=== PATIENT | male | born 1950 | race Caucasian/White ===

== ENCOUNTER → 2016-06-25 08:32 | Outpatient (CLI) | payer MEDICARE, BC ==
[2015-10-29 10:20] VITALS: BMI 22.2
[~2016-06-25 08:32] MED LIST: ALEVE220 MG PO; BAYER CHEWABLE81 MG PO; GLIPIZIDE10 MG PO; INVOKAMET 150-1 EACH PO; MIRAPEX0.75 MG PO; NICODERM C1 PATCH .3 TRANSDERM; PLAVIX75 MG PO; TENORMIN50 MG PO; TRADJENTA5 MG PO
--- NOTE | 2016-06-25 09:57 | NUR ---
Nutrition education for DMT2: Pt works as a center medical and lab director. Pt is very erratic with meal times. The only meal that pt eats consistently at the same time is breakfast. Pt never drinks sugary drinks-just water and diet sodas. Pt eats nonstarchy vegetables daily at least with one meal. Pt does eat fast food. Ht: 5'10" Wt: 165# IBW: 166#+/-10% BMI: 23.7 Meds: Glipizide 2 pills morning and evening, Actos, Invocanamet Reviewed CHO containing foods and the affect CHO have on glucose. Reviewed portion sizes of common CHO foods. Advised pt to eat meals and snacks at consistent times along with the same amount of CHO every day to keep glucose under control; especially while taking Glipizide. Advised pt to start packing meals and snacks to try and eat healthier than fast food. Pt with good understanding of information provided. Provided pt with printed diet information and RDN name and phone number. RDN will be avialable if needed. Thank you for the consult.
== END | disposition home or self-care (01) ==
LOC: D.FANS 08:32
DX: E11.9 Type 2 diabetes mellitus without complications (principal)

== ENCOUNTER 2016-08-12 07:28 | Outpatient (CLI) | payer MEDICARE, BC ==
[~2016-08-12] VITALS: Ht 177.8 cm; Wt 72.7 kg
--- NOTE | ~2016-08-12 | HEMODYNAMI ---
PATIENT:SHANNON TOMPKINS MEDICAL RECORD: [id number] : 50 LOCATION:D.CAT ADMISSION DATE: 08/12/16 Generatedon:08/12/201610:25 Patient name: SHANNON TOMPKINS Patient #: [id number] SSN: : 1950 Date of study: 08/12/2016 Page: Of Hemodynamic Procedure Report Patient Data Patient Demographics Procedure consent was obtained First Name: SHANNON Gender: Male Last Name: LEDA : 1950 Middle Initial: L Age: 66 year(s) Patient #: [id number] Race: Additional ID: [id number] Contact details [address]: [address] [place] [address] State: [place] City: [place] Zip code: [address] Past Medical History Allergies: No known allergies Admission Admission Data Admission Date: 08/12/2016 Admission Time: 7:28 Lab Results Lab Result Date: 08/12/2016 Lab Result Time: 0:00 Biochemistry Name Units Result Min Max Creatinine mg/dl 1.1 --(--*-)-- 0.6 1.3 CBC Name Units Result Min Max Hemoglobin g/dl 14.1 --(*---)-- 13.5 17.5 Procedure Procedure Types Cath Procedure Miscellaneous Procedures Moderate Sedation up to 45 minutes Peripheral Cath Diagnostic Procedure Cath Peripheral Gdwfl-Bbogyhp-Nhk-Off Peripheral vascular Intervention Stent Stent-Fem/Popw/plasty Procedure Description Procedure Date Procedure Date: 08/12/2016 Procedure Start Time: 10:03 Procedure End Time: 10:25 Procedure Staff Name Function Francois Cisse MD Performing Physician Thom Harris RT Scrub Cata Elmore RN Nurse Gay Vásquez RT Monitor Procedure Data Cath Procedure Fluoroscopy Diagnostic fluoroscopy Total fluoroscopy Time: 3.7 time: 3.7 min min Diagnostic fluoroscopy Total fluoroscopy dose: 100 dose: 100 mGy mGy Contrast Material Contrast Material Type Amount (ml) Isovue 300 118 Entry Location Entry Primary Successful Side Size Upsize Upsize Entry Closure Rai ccessful Closure Location (Fr) 1 (Fr) 2 (Fr) Remarks Device Remarks Femoral Left 5 Fr 6 Fr 6 Fr Mechanical artery Long Short Compression Estimated blood loss: 10 ml Diagnostic catheters Device Type Used For End Catheter Placement Cordis Tempo 5Fr UF Abdominal catheter aortogram with runoff Procedure Complications No complications Procedure Medications Medication Administration Route Dosage Oxygen NC 2 l/min Heparin Flush Bag added to field 2 bags (1000units/500ml NS) Lidocaine 2% added to field 20 Fentanyl I.V. 50 mcg Versed I.V. 1 mg Heparin Bolus I.V. 4000 units Fentanyl I.V. 25 mcg Versed I.V. 0.5 mg Fentanyl I.V. 25 mcg Versed I.V. 0.5 mg Hemodynamics Rest HGB: 14.1 (g/dl) Heart Rate: 73 (bpm) Snapshots Pre Cath Intra NCS Post Cath Vital Signs Time Heart Resp SPO2 etCO2 [id number] NIBP (mmHg) Rhythm Pain Sedation Rate (ipm) (%) (mmHg) (mmHg) Status Level (bpm) 9:33:56 75 16 100 0 0 157/70(118) NSR 0 (11) 10(A) , No pain 9:38:17 70 19 100 0 0 152/71(113) NSR 0 (11) 10(A) , No pain 9:42:39 72 18 100 0 0 141/64(102) NSR 0 (11) 10(A) , No pain 9:46:57 71 20 99 0 0 142/62(105) NSR 0 (11) 9(A) , No pain 9:51:17 71 16 99 0 0 136/60(102) NSR 0 (11) 9(A) , No pain 9:55:33 71 18 99 0 0 136/65(100) NSR 0 (11) 9(A) , No pain 9:59:51 71 16 99 0 0 127/57(95) NSR 0 (11) 9(A) , No pain 10:04:50 72 17 100 0 0 Measuring NSR 0 (11) 9(A) , No pain 10:05:02 71 17 100 0 0 137/66(100) NSR 0 (11) 9(A) , No pain 10:09:18 73 20 99 0 0 152/65(102) NSR 0 (11) 9(A) , No pain 10:13:41 71 18 99 0 0 143/61(99) NSR 0 (11) 9(A) , No pain 10:18:01 71 20 99 0 0 137/60(102) NSR 0 (11) 9(A) , No pain 10:22:17 75 7 99 0 0 145/62(102) NSR 0 (11) 9(A) , No pain Medications Time Medication Route Dose Verified Delivered Reason Notes Effectiveness by by 9:32:00 Oxygen NC 2 Cata Cata used for l/min Elmore Elmore show host or hostess RN 9:32:08 Heparin Flush added 2 Cata Cata used for Bag to bags Elmore Elmore procedure (1000units/500ml field RN RN NS) 9:32:16 Lidocaine 2% added 20ml Cata Cata used for to vial Elmore Elmore procedure field RN RN 9:42:53 Fentanyl I.V. 50 Cata Cata for sedation mcg Elmore Elmore RN RN 9:42:59 Versed I.V. 1 mg Cata Cata for sedation Elmore Elmore RN RN 10:09:05 Heparin Bolus I.V. 4000 Cata Cata for units Elmore Elmore anticoagulation RN RN 10:11:17 Fentanyl I.V. 25 Cata Cata for sedation mcg Elmore Elmore RN RN 10:11:21 Versed I.V. 0.5 Cata Cata for sedation mg Elmore Elmore RN RN 10:12:48 Fentanyl I.V. 25 Cata Cata for sedation mcg Elmore Elmore RN RN 10:12:51 Versed I.V. 0.5 Cata Cata for sedation mg Elmore Elmore RN water commissioner Log Time Note 9:19:30 Thom Harris RT(R) sent for patient. Start room use. 9:19:31 Time tracking: Regular hours 9:19:36 Plan of Care:Hemodynamics will remain stable., Cardiac rhythm will remain stable., Comfort level will be maintained., Respiratory function will remain adequate., Patient/ family verbilizes understanding of procedure., Procedure tolerated without complication., Recovers from procedure without complications.. 9:25:23 Patient received from Pre/Post Procedure Room to [facility] 1 Alert and oriented. Tansferred to table in Supine position. 9:25:24 Warm blankets applied, and kaia hugger turned on for patient comfort. 9:25:24 Correct patient and procedure confirmed by team. 9:25:26 Signed procedure consent form obtained from patient. 9:25:26 ECG and BP/O2 sat monitors applied to patient. 9:25:27 Full Disclosure recording started 9:32:00 Oxygen 2 l/min NC was administered by Cata Elmore RN; used for procedure; 9:32:08 Heparin Flush Bag (1000units/500ml NS) 2 bags added to field was administered by Cata Elmore RN; used for procedure; 9:32:16 Lidocaine 2% 20ml vial added to field was administered by Cata Elmore RN; used for procedure; 9:32:41 Vital chart was started 9:35:45 Baseline sample Acquired. 9:35:59 Rhythm: sinus rhythm 9:36:05 H&P Date Dictated: 08/12/2016 New H&P dictated by physician.. 9:36:07 Pre-procedure instructions explained to patient. 9:36:07 Pre-op teaching completed and patient verbalized understanding. 9:36:08 Family in waiting room. 9:36:11 Patient NPO since Midnight. 9:36:17 Patient allergic to No known allergies 9:36:20 Is the patient allergic to Iodine/contrast media? No. 9:36:22 Is patient on blood thinner?Yes 9:36:24 ACC The patient was administered the following blood thiners within the last 24 hours: ACCAspirin, ACCPlavix 9:36:26 Patient diabetic? Yes. 9:36:28 If diabetic: On Metformin? Yes 9:36:30 If on Metformin: Last Dose? 08/10/2016 9:36:34 Previous problem with sedation/anesthesia? No ? 9:36:35 Snore? Yes 9:36:36 Sleep apnea? No 9:36:37 Deviated septum? No 9:36:38 Opens mouth fully? Yes 9:36:39 Sticks out tongue? Yes 9:36:41 Airway obstruction? No ? 9:36:45 Dentures? Yes In 9:36:48 Pre procedure: right dorsailis pedis pulse 1+ Palpable, but thready & weak; easily obliterated 9:36:51 Pre procedure: left dorsailis pedis pulse 1+ Palpable, but thready & weak; easily obliterated 9:36:53 Patient pain scale 0/10 ?. 9:36:58 IV patent on arrival in left hand with 0.9% NaCl at O. 9:37:21 Lab Result : Creatinine 1.1 mg/dl 9:37:21 Lab Result : Hemoglobin 14.1 g/dl 9:37:24 Lab results completed and on chart. 9:37:28 Bilateral groins area was prepped with chlora-prep and draped in sterile fashion 9:37:29 Alarms reviewed by R. N. 9:37:29 Sharps counted by scrub and verified by R.N. 9:37:32 Acist Syringe opened to sterile field. 9:37:33 Bag Decanter opened to sterile field. 9:37:33 Medline Cath Pack opened to sterile field. 9:37:34 Terumo 5Fr [place] Sheath opened to sterile field. 9:37:35 Acist Hand Control opened to sterile field. 9:37:35 Acist Manifold opened to sterile field. 9:37:39 Tegaderm 4 x 4 opened to sterile field. 9:37:41 St Get 260cm J .035 wire opened to sterile field. 9:42:25 Final Timeout: patient, procedure, and site verified with staff and physician. All members of the team are in agreement. 9:42:29 Left groin site verified by team. 9:42:32 Physical assessment completed. ASA score P 2 - A patient with mild systemic disease as per Francois Cisse MD. 9:42:36 Sedation plan: IV Moderate Sedation Versed, Fentanyl 9:42:53 Fentanyl 50 mcg I.V. was administered by Cata Elmore RN; for sedation; 9:42:59 Versed 1 mg I.V. was administered by Cata Elmore RN; for sedation; 9:45:47 Zero performed for pressure channel P1 9:45:51 Zero performed for pressure channel P1 10:03:33 Procedure started. 10:03:38 Local anesthetic to left femerol artery with Lidocaine 2% by Francois Cisse MD.INITIAL ACCESS ONLY 10:04:32 A 5 Fr sheath was inserted into the Left Femoral artery 10:04:58 A LilyMedia 5Fr UF catheter was advanced over the wire and used for Abdominal aortogram with runoff. 10:07:01 Terumo 6Fr [place] Destination Sheath opened to sterile field. 10:07:02 Terumo Super Stiff Angled 260cm glide wire opened to sterile field. 10:07:03 Merit BasixCompak Inflation Kit opened to sterile field. 10:07:08 Terumo 6Fr [place] Sheath opened to sterile field. 10:08:07 Terumo TORQUE DEVICE PLASTIC .038 opened to sterile field. 10:08:13 SS [place] wire advanced. 10:08:26 Sheath upsized to a 6 Fr Long. 10:09:01 Glidewire advanced down RSFA 10:09:05 Heparin Bolus 4000 units I.V. was administered by Cata Elmore RN; for anticoagulation; 10:10:15 Wire removed. 10:10:26 Sandstone Sci Choice PT Extra Support J 300cm .014 gu opened to sterile field. 10:10:42 Choice PT ES wire advanced. 10:11:17 Fentanyl 25 mcg I.V. was administered by Cata Elmore RN; for sedation; 10:11:21 Versed 0.5 mg I.V. was administered by Catasushil Elmore RN; for sedation; 10:12:48 Fentanyl 25 mcg I.V. was administered by Catasushil Elmore RN; for sedation; 10:12:51 Versed 0.5 mg I.V. was administered by Catasushil Elmore RN; for sedation; 10:12:59 Inflation number: 1 A Cordis Powerflex Pro 6.0 X 20 X 135 balloon was prepped and advanced across the Mid Superficial Femoral, Right, then inflated to 3 GIULIANA for 0:10 (min:sec). 10:13:21 Balloon removed over the wire. 10:15:12 Cordis SMART 6 X 40 X 120 stent was deployed across Mid Superficial Femoral, Right . 10:15:30 Stent catheter was removed intact over wire. 10:15:31 Wire removed. 10:15:39 Sheath upsized to a 6 Fr Short. 10:15:58 Cordis 6Fr Exoseal opened to sterile field. 10:16:01 Procedure ended.(Physican Out) 10:17:57 Fluoroscopy time 03.70 minutes. 10:18:02 Fluoroscopy dose: 100 mGy 10:18:02 Flurop Dose total: 100 10:18:06 Contrast amount:Isovue 300 118ml. 10:18:08 Sharps counted by scrub and verified by R.N. 10:18:10 Insertion/operative site no bleeding no hematoma. 10:18:16 Post-op/insertion site Left Femoral artery dressed using a 4 x 4 and Tegaderm. 10:18:20 Post left femerol artery:stable, clean and dry 10:18:22 Post Procedure Pulses reassessed and unchanged 10:18:27 Post-procedure physical assessment completed. ASA score P 2 - A patient with mild systemic disease as per Francois Cisse MD. 10:18:29 Post procedure rhythm: unchanged. 10:18:32 Estimated blood loss: 10 ml 10:18:33 Post procedure instruction explained to patient.Patient verbalizes understanding. 10:18:34 Patient needs reinforcement of post procedure teaching. 10:19:03 Procedure type changed to Cath procedure, Miscellaneous Procedures, Moderate Sedation up to 45 minutes, Peripheral Cath Diagnostic Procedure, Cath Peripheral, Rybwd-Skqiqui-Ajj-Off, Peripheral vascular Intervention, Stent, Stent-Fem/Popw/plasty 10:20:15 Procedure and supply charges have been captured, reviewed, submitted and are correct. 10:20:20 Procedure Complication : No complications 10:20:22 See physician's report for complete and final results. 10:23:20 Sheath removed intact; hemostasis achieved with Mechanical Compression to the Left Femoral artery. 10:23:41 St Get Femstop Arch Gold opened to sterile field. 10:24:59 Vital chart was stopped 10:25:03 Report given to Pre/Post Procedure Room. 10:25:06 Patient transfered to Pre/Post Procedure Room with Stretcher. 10:25:13 Procedure ended. 10:25:13 Full Disclosure recording stopped 10:25:16 End room use (Document Last) Intervention Summary Intervention Notes Time ActionType Lesion and Equipment Action# Pressure Duration Attributes Used 10:12:59 Inflate Mid Cordis 1 3 00:10 balloon Superficial Powerflex Femoral, Pro 6.0 X Right 20 X 135 balloon 10:15:12 Deploy self Mid Cordis 1 expanding Superficial SMART 6 X stent Femoral, 40 X 120 Right stent Device Usage Item Name Manufacture Quantity Catalog Number Hospital Part Current Minim al Lot# / Charge Number Stock Stock Serial# Code Acist Acist 1 [id number] [id number] 686969 [id number] 20 Syringe Medical Systems Inc Bag Microtek 1 2002S 809260 13117 899984 5 Decanter Medical Inc. Medline Cardinal 1 [id number] 956159 64035 543717 5 Cath Pack Health Terumo 5Fr Terumo 1 [id number] 065518 626603 219668 40 [place] Sheath Acist Hand Acist 1 57471 073495 186425 930408 5 Control Medical Systems Inc Acist Acist 1 59005 635676 398481 914570 5 Manifold Medical Systems Inc Tegaderm 4 3M 1 1626W 731955 334644 579[address] Get 1 520515 286134 110408 492469 30 260cm J .035 wire Cordis Cardinal 1 [id number] 071359 446840 584255 10 Tempo 5Fr Health UF catheter Terumo 6Fr Terumo 1 RSR01 735555 60601 434240 5 [place] Destination Sheath Terumo Terumo 1 [id number] 478731 303924 661487 5 Super Stiff Angled 260cm glide wire Merit Merit 1 [id number] 600803 573936 462989 15 BasixHealthboxpaStars Express Medical Inflation Kit Terumo 6Fr Terumo 1 [id number] 768307 971425 197670 40 [place] Sheath Terumo Sandstone 1 TD01 241790 597459 791773 5 TORQUE Scientific DEVICE PLASTIC .038 Sandstone Sci Sandstone 1 [id number] 400481 006857 495606 5 Choice PT Scientific Extra Support J 300cm .014 gu Cordis Cardinal 1 [id number] 140396 932133 871428 5 Powerflex Health Pro 6.0 X 20 X 135 balloon Cordis Cardinal 1 [id number] 039511 649460 0 [id number] SMART 6 X Health 40 X 120 stent Cordis 6Fr Cardinal 1 EX600 907310 415877 035824 [id number] Get St Get 1 [id number] 700467 272876 066839 5 Femstop Arch Gold Signature Audit Forsan Stage Time Signature Unsigned Intra-Procedure 08/12/2016 Gay 10:25:27 AM Counts RT(R) Signatures Monitor : Gay Signature : Counts RT Date : Time : [id number] [place] [address]
[2016-08-12] MEDS ORDERED: ACTOS30 MG PO (08:42)
[2016-08-12 08:49] VITALS: BP 154/56; Ht 177.8 cm; Wt 72.7 kg
[2016-08-12 08:51] LABS: EOSINOPHILS 6.5 % (0-7); HEMATOCRIT 42.9 % (42.0-54.0); HEMOGLOBIN 14.1 g/dL (13.5-17.5); LYMPHOCYTES 26.7 % (15-50); MCH 34.7 pg (26.0-34.0); MCHC 32.9 g/dL (31.0-37.0); MCV 105.7 fL (80.0-100.0); MEAN PLATELET VOLUME 9.7 fL (7.4-10.4); MONOCYTES 8.3 % (2-11); NEUTROPHILS 57.5 % (40-80); RBC 4.06 10x6/uL (4.20-6.10); RDW 12.9 % (11.5-14.5); WBC 4.8 10x3/uL (4.8-10.8)
[2016-08-12 08:52] LABS: PLATELET COUNT 211 10x3/uL (130-400)
[2016-08-12 09:02] LABS: CALCIUM 9.4 mg/dL (8.5-10.1); CREATININE - SERUM 1.1 mg/dL (0.6-1.3)
--- NOTE | 2016-08-12 10:55 | NUR ---
2L NC, NO RESP DISTRESS NOTED. LEFT GROIN 6F EXOSEAL CDI, NO BLEEDING OR HEMATOMA NOTED, FEMSTOP IN PLACE AT 115. VSS. NO C/O CHEST PAIN OR NAUSEA. C/O LEFT LEG PAIN. REC'D ORDERS FOR PAIN MEDICATION FROM DR. HILL. SEE APR.
--- NOTE | 2016-08-12 11:25 | NUR ---
2L NC, NO RESP DISTRESS NOTED. LEFT GROIN 6F EXOSEAL CDI, WITH FEMSTOP IN PLACE. NO BLEEDING OR HEMATOMA NOTED. VSS. AT BEDSIDE.
--- NOTE | 2016-08-12 11:40 | NUR ---
FEMSTOP PRESSURE DECREASED BY 20, NO BLEEDING NOTED. 2L NC, NO RESP DISTRESS NOTED. VSS.
--- NOTE | 2016-08-12 11:55 | NUR ---
FEMSTOP PRESSURE DECREASED BY 20, NO BLEEDING NOTED.
--- NOTE | 2016-08-12 12:15 | NUR ---
FEMSTOP PRESSURE DECREASED BY 30, NO BLEEDING NOTED.
--- NOTE | 2016-08-12 12:30 | NUR ---
FEMSTOP PRESSURE DECREASED BY 30, NO BLEEDING NOTED. VSS.
--- NOTE | 2016-08-12 12:55 | NUR ---
REMAINING FEMSTOP PRESSURE REMOVED AND DRESSING PLACED TO SITE. NO BLEEDING OR HEMATOMA NOTED. VSS. NO C/O PAIN OR NAUSEA.
--- NOTE | 2016-08-12 13:58 | NUR ---
HOB ELEVATED 30 DEGREES. LEFT GROIN 6F EXOSEAL CDI, NO BLEEDING OR HEMATOMA NOTED.
--- NOTE | 2016-08-12 14:15 | NUR ---
LEFT HAND PIV D/C'D WITH CATHETER INTACT, BAND AID TO SITE. UP TO BEDSIDE TO GET DRESSED.
--- NOTE | 2016-08-12 14:20 | NUR ---
UP TO RESTROOM TO VOID.
--- NOTE | 2016-08-12 14:28 | NUR ---
DISCHARGE INSTRUCTIONS GIVEN, VERBALIZED UNDERSTANDING.
--- NOTE | 2016-08-12 14:35 | NUR ---
TAKEN OUT VIA WHEELCHAIR BY CATH BILLING SPECIALIST. LEFT FACILITY WITH AND ALL PERSONAL BELONGINGS.
--- NOTE | 2016-08-14 08:49 | HP ---
PATIENT: SHANNON KELLEY MEDICAL RECORD: [id number] ACCOUNT: [id number] LOCATION:JOSEPH : 50 ADMISSION DATE: 08/12/16 HISTORY AND PHYSICAL EXAMINATION DIAGNOSES: 1. Claudication. 2. Peripheral vascular disease. 3. Hypertension. 4. Noninsulin dependent diabetes. 5. Coronary artery disease. HISTORY OF PRESENT ILLNESS: Mr. Kelley has been having increasing leg pain compatible with claudication as well as a nonhealing ulcer on his right toe. He had an KATARZYNA with 0.61 on the right, 0.81 on the left. He is followed by the wound clinic. They requested possible revascularization. PHYSICAL EXAMINATION: GENERAL APPEARANCE: Well-nourished, well-developed, appears stated age. Level of distress, comfortable. PSYCHIATRIC: Mental status, alert, normal affect. Orientation, oriented to time, place and person. EYES: Lids and conjunctiva, noninjected. No discharge, no pallor. ENT: Lips, teeth, gums, normal dentition. Oropharynx, no cyanosis, no pallor. NECK: Carotid arteries, bilateral normal upstroke, no bruits, no thrills. JUGULAR VEINS: No jugular venous pressure or distention. CERVICAL LYMPH NODES: Nontender, nonenlarged. THYROID: Not enlarged. Nontender. No nodules. LUNGS: Respiratory effort, unlabored. CHEST: Normal curvature. No thoracic deformity. No chest wall tenderness. Percussion, resonant. Auscultation, clear. No wheezes, no rales, no rhonchi. CARDIOVASCULAR: Precordial exam, nondisplaced. No heaves or pericardial thrills. Rate and rhythm, regular. Heart sounds, normal S1, normal S2. No S3, no gallop, no rub. Systolic murmur, not heard. Diastolic murmur, not heard. EXTREMITIES: No cyanosis, no edema. Peripheral pulses, full and equal in all extremities, except as noted. No bruits appreciated. ABDOMEN: Soft, nondistended. Normal aorta. No bruit. Nontender. No masses. Liver, nontender, no hepatomegaly. Spleen, nontender, no splenomegaly. MUSCULOSKELETAL: No joint tenderness. No joint swelling. No erythema. NEUROLOGICAL: Normal gait, normal strength, normal tone. SKIN: Warm and dry. REVIEW OF SYSTEMS: The patient reports easy bruising but reports no swollen glands. The patient reports no fever, no night sweats, no significant weight gain, no significant weight loss. No significant exercise tolerance. The patient reports no dry eyes, no irritation, no vision change. Patient reports no difficulty hearing and no ear pain. Patient reports no frequent nose bleeds or nose and sinus problems. Patient reports on arm pain on exertion. No shortness of breath while lying down. No history of heart murmur. Patient reports no cough, no wheezing or coughing up blood. Patient reports no abdominal pain, no vomiting. Normal appetite. No diarrhea and not vomiting blood. No nausea and no constipation. Patient reports no incontinence. No difficulty urinating. No hematuria. No increased frequency. Patient reports no muscle aches. No weakness, no arthralgias, no back pain. No swelling of the extremities. Patient reports no abnormal mole, no jaundice, no rashes. Reports HISTORY AND PHYSICAL [id number] SHANNON KELLEY no loss of consciousness. No weakness and no numbness. No seizures, dizziness, or headaches. The patient reports no depression, no sleep disturbance, feeling safe in a relationship and no alcohol abuse. Patient reports on fatigue. Reports no runny nose or sinus pressure. No itching, no hives, and no frequent sneezing. OVERALL IMPRESSION: No doubt he has hemodynamically significant peripheral vascular disease. We will proceed with the aortofemoral runoff in hopes of transcatheter revascularization. TRANSINT:[id number] Voice Confirmation ID: [id number] DOCUMENT ID: [id number] BRITTANI HILL MD at 0849 CC: [id number] DICTATION DATE: 08/12/16 0853 PUBLISHING SYSTEMS ANALYST: 08/12/16 1054 DEP CLI 08/12/16 [facility] [address] [id number]
--- NOTE | 2016-08-14 08:49 | OP ---
PATIENT NAME: SAHNNON TOMPKINS MEDICAL RECORD: [id number] :50 LOCATION:D.CAT ADMISSION DATE: SURGEON: BRITTANI HILL MD DATE OF OPERATION: 08/12/2016 PROCEDURES: 1. Stent placement SFA, right. 2. HEALTHCARE SALES REPRESENTATIVE SFA, right. 3. Aortofemoral runoff. 4. Abdominal aortography. INDICATION: Claudication and peripheral vascular disease. PROCEDURE: After informed consent was obtained and after detailed explanation of risks, benefits as well as alternative therapies, the patient elected to proceed with angiogram and angioplasty. The left femoral area was prepped and draped in normal sterile fashion. A femoral artery was cannulated via modified Seldinger technique with placement of a 6-Maori hpbaof-oyn-gabd sheath. All catheters exchanged through this sheath. FINDINGS: The abdominal aortography was performed. The catheter was pulled down for aortofemoral runoff. Abdominal aortography reveals no significant abdominal aortic disease, no dissection or aneurysmal formation. No renal artery stenosis. RIGHT LEG: A. Iliac: The common internal and external iliacs are with moderate irregularities, but no flow-limiting stenosis. B. Femoral system: The common and deep femoral are widely patent. Superficial femoral has an 80+ percent stenosis in the mid distal vessel, otherwise only mild irregularities. C. Popliteal and infrapopliteal vessels: The popliteal is widely patent. Peroneal was widely patent. Anterior tibial is totally occluded. Posterior tibial is patent until approximately mid vessel then this is totally occluded; however, the peroneal vessel provided good single vessel runoff to the foot. LEFT LEG: A. Iliac: The common internal and external iliacs have moderate irregularities, but no flow-limiting stenosis. B. Femoral system: The common and deep femoral are widely patent. The superficial femoral has an 80% stenosis in the mid distal vessel, otherwise only mild irregularities. C. Popliteal and infrapopliteal vessels: The popliteal is widely patent. Peroneal is widely patent. Anterior tibial is totally occluded. Posterior tibial is patent approximately 1/[address] the vessel then this is totally occluded; however, the peroneal vessel gave preserved single vessel runoff to the foot. HEALTHCARE SALES REPRESENTATIVE STENT OF THE RIGHT SFA: The balloon used was 6 x 20 Powerflex. This yielded suboptimal result with severe intimal dissection. Stenting was undertaken with a 6 x 40 SMART stent. Result was 0% residual, no evidence of dissection. OVERALL IMPRESSION: Successful HEALTHCARE SALES REPRESENTATIVE stent of the right SFA going from 80+ OPERATIVE REPORT [id number] SHANNON TOMPKINS percent initial stenosis to 0% residual with sabianist of brisk distal flow. TRANSINT:[id number] Voice Confirmation ID: [id number] DOCUMENT ID: [id number] BRITTANI HILL MD at 0849 CC: [id number] DICTATION DATE: 08/12/16 1021 HYPERION ANALYST: 08/12/16 194 DEP CLI 08/12/16 [facility] [address] [place] [address]
== END 2016-08-12 14:35 | disposition home or self-care (01) ==
LOC: D.CATH 07:28
PROVIDERS: Internal Medicine Interventional Cardiology
DX: I70.235 Atherosclerosis of native arteries of right leg with ulceration of other part of foot (principal); I10 Essential (primary) hypertension; E11.9 Type 2 diabetes mellitus without complications; I25.10 Atherosclerotic heart disease of native coronary artery without angina pectoris; Z01.812 Encounter for preprocedural laboratory examination

== ENCOUNTER → 2016-09-23 07:43 | Outpatient (CLI) | payer MEDICARE, BC ==
[~2016-09-23] VITALS: Ht 177.8 cm; Wt 72.7 kg
--- NOTE | ~2016-09-23 | HEMODYNAMI ---
PATIENT:SHANNON TOMPKINS MEDICAL RECORD: [id number] : 50 LOCATION:D.CAT ADMISSION DATE: 09/23/16 Generatedon:09/23/201610:33 Patient name: SHANNON TOMPKINS Patient #: [id number] SSN: : 1950 Date of study: 09/23/2016 Page: Of Hemodynamic Procedure Report Patient Data Patient Demographics Procedure consent was obtained First Name: SHANNON Gender: Male Last Name: LEDA : 1950 Middle Initial: L Age: 66 year(s) Patient #: [id number] Race: Additional ID: [id number] Contact details Address: [address] [place] [address] State: [place] City: [place] Zip code: [address] Past Medical History Allergies: No known allergies Admission Admission Data Admission Date: 09/23/2016 Admission Time: 7:43 Lab Results Lab Result Date: 09/23/2016 Lab Result Time: 0:00 Biochemistry Name Units Result Min Max BUN mg/dl 18 --(---*)-- 7 18 Creatinine mg/dl 0.8 --(-*--)-- 0.6 1.3 CBC Name Units Result Min Max Hemoglobin g/dl 14 --(*---)-- 13.5 17.5 Procedure Procedure Types Cath Procedure Miscellaneous Procedures Moderate Sedation up to 15 minutes Peripheral Cath Diagnostic Procedure Peripheral vascular Intervention Stent Stent-Fem/Popw/plasty Procedure Description Procedure Date Procedure Date: 09/23/2016 Procedure Start Time: 10:07 Procedure End Time: 10:30 Procedure Staff Name Function Francois Cisse MD Performing Physician Rivas France RN Nurse Andres Chiu RT Monitor Sasha Pollard RT Scrub Procedure Data Cath Procedure Fluoroscopy Diagnostic fluoroscopy Total fluoroscopy Time: 6.8 time: 6.8 min min Diagnostic fluoroscopy Total fluoroscopy dose: 93 dose: 93 mGy mGy Contrast Material Contrast Material Type Amount (ml) Isovue 300 36 Entry Location Entry Primary Successful Side Size Upsize Upsize Entry Closure Succes sful Closure Location (Fr) 1 (Fr) 2 (Fr) Remarks Device Remarks Femoral Right 6 Fr 6 Fr 6 Fr Exoseal artery Short Long Short Diagnostic catheters Device Type Used For End Catheter Placement Diagnostic 5Fr IMT Catheter Procedure Complications No complications Procedure Medications Medication Administration Route Dosage Oxygen NC 2 l/min Lidocaine 2% added to field 20 Heparin Flush Bag added to field 2 bags (1000units/500ml NS) 0.9% NaCl I.V. 100 ml/hr Versed I.V. 1 mg Fentanyl I.V. 50 mcg Versed I.V. 1 mg Fentanyl I.V. 50 mcg Heparin Bolus I.V. 4000 units Fentanyl I.V. 25 mcg Hemodynamics Rest HGB: 14 (g/dl) Heart Rate: 66 (bpm) Snapshots Pre Cath Intra NCS Post Cath Vital Signs Time Heart Resp SPO2 etCO2 AF3hizb NIBP (mmHg) Rhythm Pain Sedation Rate (ipm) (%) (mmHg) (mmHg) Status Level (bpm) 9:46:29 67 16 100 0 0 158/71(120) NSR 0 (11) 10(A) , No pain 9:50:51 68 15 100 0 0 144/67(108) NSR 0 (11) 10(A) , No pain 9:55:09 67 14 100 0 0 140/62(91) NSR 0 (11) 10(A) , No pain 9:59:27 69 15 100 0 0 137/62(104) NSR 0 (11) 10(A) , No pain 10:03:43 68 15 100 0 0 142/64(106) NSR 0 (11) 10(A) , No pain 10:07:59 70 14 100 0 0 148/65(108) NSR 0 (11) 9(A) , No pain 10:12:20 70 16 100 0 0 138/65(96) NSR 0 (11) 9(A) , No pain 10:16:35 68 14 100 0 0 140/63(89) NSR 0 (11) 9(A) , No pain 10:20:54 69 15 100 0 0 133/58(87) NSR 0 (11) 9(A) , No pain 10:25:05 72 15 98 0 0 131/73(104) NSR 0 (11) 10(A) , No pain 10:30:52 69 10 100 0 0 146/68(107) NSR 0 (11) 10(A) , No pain Medications Time Medication Route Dose Verified Delivered Reason Notes Effectiveness by by 9:51:16 Oxygen NC 2 Francois Buffie used for l/min Tanna France RN procedure 9:51:25 Lidocaine 2% added 20ml Francois Francois for local to vial Tanna Cisse MD anesthetic field 9:51:31 Heparin Flush added 2 Francois Francois used for Bag to bags Tanna Cisse MD procedure (1000units/500ml field NS) 9:52:08 0.9% NaCl I.V. 100 Francois Buffie Per physician ml/hr Tanna France RN 10:04:38 Versed I.V. 1 mg Francois Buffie for sedation Tanna France RN 10:04:50 Fentanyl I.V. 50 Francois Buffie for sedation mcg Tanna France RN 10:11:10 Versed I.V. 1 mg Franocis Buffie for sedation Tanna France RN 10:11:14 Fentanyl I.V. 50 Francois Buffie for sedation mcg Tanna France RN 10:16:32 Heparin Bolus I.V. 4000 Francois Buffie for verifi ed units Tanna France RN anticoagulation with dr cisse 10:20:09 Fentanyl I.V. 25 Francois Buffie for sedation mcg Tanna France RN Procedure Log Time Note 9:30:49 Andres Chiu RT(R) sent for patient. Start room use. 9:44:55 Time tracking: Regular hours 9:44:59 Plan of Care:Hemodynamics will remain stable., Cardiac rhythm will remain stable., Comfort level will be maintained., Respiratory function will remain adequate., Patient/ family verbilizes understanding of procedure., Procedure tolerated without complication., Recovers from procedure without complications.. 9:45:04 Patient received from Pre/Post Procedure Room to CCL 1 Alert and oriented. Tansferred to table in Supine position. 9:45:05 Warm blankets applied, and kaia hugger turned on for patient comfort. 9:45:06 Correct patient and procedure confirmed by team. 9:45:07 Signed procedure consent form obtained from patient. 9:45:08 ECG and BP/O2 sat monitors applied to patient. 9:45:09 Full Disclosure recording started 9:45:14 Vital chart was started 9:48:52 Baseline sample Acquired. 9:48:56 Rhythm: sinus rhythm 9:49:55 H&P Date Dictated: 09/22/2016 Within 30 days and on chart., H&P Addendum completed by physician on day of procedure. (MUST COMPLETE FOR ALL OUTPATIENTS). 9:49:56 Pre-procedure instructions explained to patient. 9:49:56 Pre-op teaching completed and patient verbalized understanding. 9:49:58 Family in waiting room. 9:50:02 Patient NPO since Midnight. 9:50:08 Patient allergic to No known allergies 9:50:10 Is the patient allergic to Iodine/contrast media? No. 9:50:46 Is patient on blood thinner?Yes 9:50:57 ACC The patient was administered the following blood thiners within the last 24 hours: ACCPlavix 9:51:00 Patient diabetic? Yes. 9:51:02 If diabetic: On Metformin? Yes 9:51:05 If on Metformin: Last Dose? 09/21/2016 9:51:07 ----Pre-sedation anethsthesia assessment.---- 9:51:09 Previous problem with sedation/anesthesia? No ? 9:51:11 Snore? Yes 9:51:15 Sleep apnea? No 9:51:16 Oxygen 2 l/min NC was administered by Rivas France RN; used for procedure; 9:51:17 Deviated septum? No 9:51:18 Opens mouth fully? Yes 9:51:20 Sticks out tongue? Yes 9:51:22 Airway obstruction? No ? 9:51:25 Lidocaine 2% 20ml vial added to field was administered by Francois Cisse MD; for local anesthetic; 9:51:26 Dentures? Yes i n tight 9:51:30 Pre procedure: right dorsailis pedis pulse 2+ Normal; easily identifiable; not easily obliterated 9:51:31 Heparin Flush Bag (1000units/500ml NS) 2 bags added to field was administered by Francois Cisse MD; used for procedure; 9:51:34 Pre procedure: left dorsailis pedis pulse 0-Absent 9:51:38 Patient pain scale 0/10 ?. 9:51:46 IV patent on arrival in left hand with 0.9% NaCl at 10ml/hr. 9:52:08 0.9% NaCl 100 ml/hr I.V. was administered by Rivas France RN; Per physician; 9::09 Lab Result : BUN 18 mg/dl 9:52: Lab Result : Creatinine 0.8 mg/dl 9:52:09 Lab Result : Hemoglobin 14 g/dl 9:52:12 Lab results completed and on chart. 9:52:15 Bilateral groins area was prepped with chlora-prep and draped in sterile fashion 9:52:15 Alarms reviewed by R. N. 9:52:16 Sharps counted by scrub and verified by R.N. 9:52:31 Physician paged 9:52:36 Use device set Femoral PCI 9:52:37 Acist Syringe opened to sterile field. 9:52:38 Acist Hand Control opened to sterile field. 9:52:39 Bag Decanter opened to sterile field. 9:52:39 Medline Cath Pack opened to sterile field. 9:52:40 Terumo 6Fr [place] Sheath opened to sterile field. 9:52:40 St Get 260cm J .035 wire opened to sterile field. 9:52:41 Merit BasixCompak Inflation Kit opened to sterile field. 9:52:42 Acist Manifold opened to sterile field. 9:52:43 Tegaderm 4 x 4 opened to sterile field. 9:54:55 Physician arrived 9:54:56 --------ALL STOP TIME OUT------ 9:54:56 Final Timeout: patient, procedure, and site verified with staff and physician. All members of the team are in agreement. 9:54:58 Right groin site verified by team. 9:55:02 Physical assessment completed. ASA score P 2 - A patient with mild systemic disease as per Francois Cisse MD. 9:55:05 Sedation plan: IV Moderate Sedation Versed, Fentanyl 10:01:56 Zero performed for pressure channel P1 10:04:37 Terumo TORQUE DEVICE PLASTIC .038 opened to sterile field. 10:04:38 Versed 1 mg I.V. was administered by Rivas France RN; for sedation; 10:04:50 Fentanyl 50 mcg I.V. was administered by Rivas France RN; for sedation; 10:07:28 Procedure started. 10:07:39 Local anesthetic to right femoral artery with Lidocaine 2% by Francois Cisse MD.INITIAL ACCESS ONLY 10:07:47 A 6 Fr Short sheath was inserted into the Right Femoral artery 10:09:22 Terumo 6Fr [place] Destination Sheath opened to sterile field. 10:11:07 A Diagnostic 5Fr IMT Catheter was advanced over the wire and used for . 10:11:10 Versed 1 mg I.V. was administered by Rivas France RN; for sedation; 10:11:14 Fentanyl 50 mcg I.V. was administered by Rivas France RN; for sedation; 10:11:21 5 Fr IMT guide catheter was inserted over the wire 10:11:34 AROUND THE HORN WITH GLIDEWIRE 10:15:01 Sheath upsized to a 6 Fr Long. 10:16:32 Heparin Bolus 4000 units I.V. was administered by Rivas France RN; for anticoagulation; verified with dr cisse 10:19:40 CPTES wire advanced. 10:19:42 Inflation number: 1 A Saber 5.0 x 8 x 150 balloon was prepped and advanced across the Mid Superficial Femoral, Left, then inflated to 11 GIULIANA for 0:10 (min:sec). 10:20:00 Keystone Mobiliz Choice PT Extra Support J 300cm .014 gu opened to sterile field. 10:20:09 Fentanyl 25 mcg I.V. was administered by Rivas France RN; for sedation; 10:20:26 Balloon removed over the wire. 10:20:55 Procedure type changed to Cath procedure, Miscellaneous Procedures, Moderate Sedation up to 15 minutes, Peripheral Cath Diagnostic Procedure, Peripheral vascular Intervention, Stent, Stent-Fem/Popw/plasty 10:21:27 Cordis SMART 6 X 120 X 120 stent was deployed across Mid Superficial Femoral, Left . 10:22:51 Inflation number: 2 The Saber 5.0 x 8 x 150 balloon was reinflated across the Mid Superficial Femoral, Left, to 9 GIULIANA for 0:07 (min:sec). 10:23:01 Inflation number: 3 The Saber 5.0 x 8 x 150 balloon was reinflated across the Mid Superficial Femoral, Left, to 9 GIULIANA for 0:09 (min:sec). 10::44 Stent catheter was removed intact over wire. 10:23:44 Wire removed. 10:23:52 Sheath upsized to a 6 Fr Short. 10:25:36 Sheath removed intact; hemostasis achieved with Exoseal to the Right Femoral artery. 10:25:38 Procedure ended.(Physican Out) 10::40 Fluoroscopy time 06.80 minutes. 10::47 Flurop Dose total: 93 10::47 Fluoroscopy dose: 93 mGy 10:28:11 HURT HEAD FROM EAIRLY MORNING CUT\ DR CISSE LOOKED AT HEAD AND RE APPLIED BANDAGE TO A FLESH WOUND REPORT BY TERI FREITAS 10::40 Contrast amount:Isovue 300 36ml. 10::42 Sharps counted by scrub and verified by R.N. 10::44 Insertion/operative site no bleeding no hematoma. 10::47 Post-op/insertion site Right Femoral artery dressed using a 4 x 4 and Tegaderm. 10:28:51 Post right femoral artery:stable 10:28:53 Post Procedure Pulses reassessed and unchanged 10:28:55 Post procedure: right dorsailis pedis pulse 1+ Palpable, but thready & weak; easily obliterated. 10:28:59 Post procedure rhythm: sinus rhythm 10:29:00 Post procedure instruction explained to patient.Patient verbalizes understanding. 10:29:16 Cordis 6Fr Exoseal opened to sterile field. 10:29:19 Procedure and supply charges have been captured, reviewed, submitted and are correct. 10:29:53 Procedure Complication : No complications 10:29:56 Vital chart was stopped 10:29:57 See physician's report for complete and final results. 10:29:59 Report given to Pre/Post Procedure Room. 10:30:04 Patient transfered to Pre/Post Procedure Room with Stretcher. 10:30:06 Procedure ended. 10:30:06 Full Disclosure recording stopped 10:30:12 End room use (Document Last) Intervention Summary Intervention Notes Time ActionType Lesion and Equipment Action# Pressure Duration Attributes Used 10:19:42 Inflate Mid Saber 5.0 1 11 00:10 balloon Superficial x 8 x 150 Femoral, balloon Left 10:21:27 Deploy self Mid Cordis 1 expanding Superficial SMART 6 X stent Femoral, 120 X 120 Left stent 10:22:51 Reinflate Mid Saber 5.0 2 9 00:07 balloon Superficial x 8 x 150 Femoral, balloon Left 10:23:01 Reinflate Mid Saber 5.0 3 9 00:09 balloon Superficial x 8 x 150 Femoral, balloon Left Device Usage Item Name Manufacture Quantity Catalog Number Hospital Part Current [facility] al Lot# / Charge Number Stock Stock Serial# Code Acist Acist 1 [id number] 037050 603305 20 Syringe Medical Systems Inc Acist Hand Acist 1 48854 787932 382955 998428 5 Control Medical Systems Inc Bag Microtek 1 2002S 672258 28178 537359 5 Decanter Medical Inc. Medline Cardinal 1 [id number] 462986 26477 280866 5 Cath Pack Health Terumo 6Fr Terumo 1 [id number] 086296 588887 860565 [address] Get St Get 1 813638 587454 291952 008759 30 260cm J .035 wire Merit Merit 1 [id number] 882335 472683 265381 15 BasixCompak Medical Inflation Kit Acist Acist 1 89725 369622 466651 087903 5 Manifold Medical Systems Inc Tegaderm 4 3M 1 1626W 259832 043336 064348 5 x 4 Terumo Keystone 1 TD01 884410 180787 766999 5 TORQUE Scientific DEVICE PLASTIC .038 Terumo 6Fr Terumo 1 RSR01 160216 07061 407116 5 [place] Destination Sheath Diagnostic Keystone 1 [id number] 788348 513344 71020 5 5Fr IMT Scientific Catheter Saber 5.0 x Cardinal 1 [id number] 340126 265222 395595 5 8 x 150 Health balloon Keystone Sci Keystone 1 [id number] 738618 650634 228994 5 [id number] Choice PT Scientific Extra Support J 300cm .014 gu Cordis Cardinal 1 [id number] 680180 303112 0 [id number] SMART 6 X Health 120 X 120 stent Cordis 6Fr Cardinal 1 EX600 950581 250893 320677 10 [facility] Health Signature Audit [place] Stage Time Signature Unsigned Intra-Procedure 09/23/2016 Andres Chiu 10:33:54 AM RT(R) Signatures Monitor : Andres Chiu RT Signature : Date : Time : [facility] [address] [place] [address]
[~2016-09-23 07:43] MED LIST changes: +ACTOS30 MG PO; +TOPROL XL50 MG PO
[2016-09-23 08:15] VITALS: BP 150/55; Ht 177.8 cm; Wt 72.7 kg
[2016-09-23 08:25] LABS: BASOPHILS 0.6 % (0-2); EOSINOPHILS 5.6 % (0-7); HEMATOCRIT 42.1 % (42.0-54.0); IMMATURE GRANULOCYTES 0.2 % (0-5); LYMPHOCYTES 19.7 % (15-50); MCH 33.8 pg (26.0-34.0); MCHC 33.3 g/dL (31.0-37.0); MCV 101.7 fL (80.0-100.0); MEAN PLATELET VOLUME 9.8 fL (7.4-10.4); MONOCYTES 7.9 % (2-11); PLATELET COUNT 188 10x3/uL (130-400); RBC 4.14 10x6/uL (4.20-6.10); RDW 12.7 % (11.5-14.5); WBC 4.7 10x3/uL (4.8-10.8)
[2016-09-23 08:44] LABS: CALC OSMOLALITY 284 mosm/kg (275-300); CARBON DIOXIDE 28.3 mmol/L (21.0-32.0); CHLORIDE - SERUM 103 mmol/L (98-107); CREATININE - SERUM 0.8 mg/dL (0.6-1.3); POTASSIUM - SERUM 5.1 mmol/L (3.5-5.1); SODIUM 138 mmol/L (136-145); UREA NITROGEN 18 mg/dL (7-18); eGFR NON AFRICAN AMERICAN > 90 mL/min (90-120)
[2016-09-23 08:46] LABS: GLUCOSE 229 mg/dL (74-106)
--- NOTE | 2016-09-23 11:06 | NUR ---
1045 RECEIVED PT FROM DEHAIRER, PT SLEEPING BUT AWAKENS EASILY TO VERBAL STIMULI, PT DENIES ANY C/O PAIN OR NAUSEA. DRESSING TO RIGHT GROIN IS CDI, AREA IS SOFT AND NONTENDER. FEET WARM TO TOUCH, CAP REFILL IS BRISK. PEDAL PULSES FAINTLY PALPABLE AND PRESENT BY DOPPLER. AT BEDSIDE. PT INSTRUCTED TO KEEP HEAD TO PILLOW AND RIGHT LEG STRAIGHT AND PT NODS UNDERSTANDING. 1100 PT DENIES ANY C/O. DRESSINGS REMAIN CDI, VSS. WILL CONTINUE TO MONITOR.
--- NOTE | 2016-09-23 12:00 | NUR ---
1200 PT SLEEPING, AWAKENS EASILY TO VERBAL STIMULI, MOVING LEGS WHEN AWAKENED AND REINSTRUCTED TO KEEP RIGHT LEG STILL AND STRAIGHT TO AVOID PRESSURE ON GROIN AND BLEEDING. PEDAL PULSES PALPABLE. DRESSING TO RIGHT GROIN IS CDI, DRESSING TO SCALP WITH MODERATE AMOUNT OF DRAINAGE. PT DENIES ANY C/O PAIN OR NAUSEA. DENIES WANTING PO FLUIDS OR SANDWICH AT THIS TIME, STATES JUST WANTS TO REST. CALL LIGHT IN REACH. VSS.
--- NOTE | 2016-09-23 12:29 | NUR ---
1229 PT SLEEPING, AWAKENS EASILY, DENIES ANY C/O. DRESSING RIGHT GROIN IS CDI, VSS. 4X4/TEGADERM TO SCALP WITH MOD DRAINAGE. PT DENIES NEEDS AT THIS TIME. CALL LIGHT IN REACH.
--- NOTE | 2016-09-23 13:26 | NUR ---
1310 PT ALERT, EATING LUNCH WITH ASSIST FROM HIS . DRESSING TO RIGHT GROIN IS CDI, AREA SOFT AND NONTENDER. PEDAL PULSES PALPABLE, CAP REFILL IS BRISK TO TOES. PT DENIES ANY C/O, CALL LIGHT IS IN REACH.
--- NOTE | 2016-09-23 14:03 | NUR ---
1400 HOB ELEVATED 40 DEGREES, DRESSING RIGHT GROIN IS CDI. PT DENIES ANY C/O. AT BEDSIDE.
--- NOTE | 2016-09-23 14:30 | NUR ---
LEFT WRIST PIV D/C'D WITH CATHETER INTACT, BAND AID TO SITE. UP TO BEDSIDE TO GET DRESSED.
--- NOTE | 2016-09-23 14:40 | NUR ---
DISCHARGE INSTRUCTIONS GIVEN, VERBALIZED UNDERSTANDING.
--- NOTE | 2016-09-23 14:45 | NUR ---
TAKEN OUT VIA WHEELCHAIR BY CATH BELT LOOP MACHINE OPERATOR. LEFT FACILITY WITH AND ALL PERSONAL BELONGINGS.
--- NOTE | 2016-09-24 13:54 | OP ---
PATIENT NAME: SHANNON TOMPKINS MEDICAL RECORD: [id number] :50 LOCATION:D.CAT ADMISSION DATE: SURGEON: BRITTANI HILL MD OPERATION DATE: 09/23/16 DATE OF OPERATION: 09/23/2016 PROCEDURES: 1. PTCA stent, left SFA. 2. Unilateral lower extremity angiography. INDICATION: Claudication and peripheral vascular disease. PROCEDURE IN DETAIL: After informed consent was obtained and after detailed explanation of risks, benefits as well as alternative therapies, the patient elected to proceed with angiogram and angioplasty. The right femoral area was prepped and draped in normal sterile fashion. Right femoral artery was cannulated via modified Seldinger technique with placement of 6-Nigerien rkwsor-iyp-rujz sheath. All catheters exchanged through this sheath. FINDINGS: The left SFA has an 80%-90% stenosis in the mid vessel. This was addressed with a 5.0 balloon. This yielded suboptimal result with severe intimal dissection. Stenting was undertaken with a 6 x 120 SMART stent. Result was 0% residual stenosis. OVERALL IMPRESSION: Successful DESK OPERATOR stent of the left SFA going from 80% to 90% initial stenosis to 0% residual stenosis. TRANSINT:[id number] Voice Confirmation ID: [id number] DOCUMENT ID: [id number] BRITTAIN HILL MD at 1354 CC: [id number] DICTATION DATE: 09/23/16 1028 [employer] ARTILLERY: 09/23/16 1127 DEP CLI 09/23/16 [place] [id number]
== END | disposition home or self-care (01) ==
LOC: D.CATH 07:43
PROVIDERS: Internal Medicine Interventional Cardiology
DX: I70.212 Atherosclerosis of native arteries of extremities with intermittent claudication, left leg (principal); Z01.812 Encounter for preprocedural laboratory examination

== ENCOUNTER 2017-07-29 09:22 | Observation (INO) | payer MEDICARE, BC ==
[~2017-07-29] VITALS: Ht 177.8 cm; Wt 76.1 kg
[2017-07-29 10:05] LABS: BASOPHILS 0.7 % (0-2); EOSINOPHILS 5.1 % (0-7); HEMATOCRIT 38.9 % (42.0-54.0); HEMOGLOBIN 13.2 g/dL (13.5-17.5); IMMATURE GRANULOCYTES 0.2 % (0-5); LYMPHOCYTES 24.1 % (15-50); MCH 33.9 pg (26.0-34.0); MCHC 33.9 g/dL (31.0-37.0); MEAN PLATELET VOLUME 9.2 fL (7.4-10.4); MONOCYTES 8.1 % (2-11); NEUTROPHILS 61.8 % (40-80); PLATELET COUNT 172 10x3/uL (130-400); RBC 3.89 10x6/uL (4.20-6.10); RDW 13.2 % (11.5-14.5); WBC 4.3 10x3/uL (4.8-10.8)
[2017-07-29 10:31] LABS: APTT 35.4 SECONDS (22.8-39.4); INR 0.98 (0.85-1.17); PROTIME 12.6 SECONDS (11.6-15.0)
[2017-07-29 10:35] LABS: ALBUMIN 3.7 g/dL (3.4-5.0); ALKALINE PHOSPHATASE 80 U/L (46-116); ALT (SGPT) 29 U/L (10-68); BILIRUBIN - TOTAL 0.48 mg/dL (0.2-1.3); CALC OSMOLALITY 276 mosm/kg (275-300); CARBON DIOXIDE 28.8 mmol/L (21.0-32.0); CHLORIDE - SERUM 102 mmol/L (98-107); CREATININE - SERUM 0.8 mg/dL (0.6-1.3); PROTEIN - SERUM 6.8 g/dL (6.4-8.2); SODIUM 138 mmol/L (136-145); UREA NITROGEN 21 mg/dL (7-18); eGFR NON AFRICAN AMERICAN > 90 mL/min (90-120)
[2017-07-29 10:40] LABS: GLUCOSE 62 mg/dL (74-106)
[2017-07-29 10:47] LABS: CKMB 1.4 U/L (0.0-3.6); CREATINE KINASE 104 UL (21-232)
[2017-07-30 00:51] VITALS: BP 98/42
[2017-07-30 03:20] VITALS: Ht 177.8 cm; Wt 76.1 kg
[2017-07-30 04:53] VITALS: BP 106/73
[2017-07-30 06:38] LABS: BASOPHILS 0.7 % (0-2); EOSINOPHILS 4.9 % (0-7); HEMATOCRIT 37.3 % (42.0-54.0); HEMOGLOBIN 12.6 g/dL (13.5-17.5); IMMATURE GRANULOCYTES 0.2 % (0-5); LYMPHOCYTES 30.2 % (15-50); MCH 33.5 pg (26.0-34.0); MCHC 33.8 g/dL (31.0-37.0); MCV 99.2 fL (80.0-100.0); MEAN PLATELET VOLUME 9.9 fL (7.4-10.4); MONOCYTES 10.4 % (2-11); NEUTROPHILS 53.6 % (40-80); PLATELET COUNT 177 10x3/uL (130-400); RBC 3.76 10x6/uL (4.20-6.10); RDW 13.2 % (11.5-14.5); WBC 4.5 10x3/uL (4.8-10.8)
[2017-07-30 06:56] LABS: ALBUMIN 3.3 g/dL (3.4-5.0); ALKALINE PHOSPHATASE 80 U/L (46-116); ALT (SGPT) 26 U/L (10-68); CALCIUM 8.3 mg/dL (8.5-10.1); CARBON DIOXIDE 25.7 mmol/L (21.0-32.0); CHLORIDE - SERUM 102 mmol/L (98-107); CREATININE - SERUM 0.8 mg/dL (0.6-1.3); POTASSIUM - SERUM 4.6 mmol/L (3.5-5.1); PROTEIN - SERUM 5.9 g/dL (6.4-8.2); SODIUM 134 mmol/L (136-145); eGFR NON AFRICAN AMERICAN > 90 mL/min (90-120)
[2017-07-30 07:00] LABS: CALC OSMOLALITY 277 mosm/kg (275-300); GLUCOSE 258 mg/dL (74-106); UREA NITROGEN 15 mg/dL (7-18)
[2017-07-30] MEDS ORDERED: BASAGLAR K100 UNIT/1 SQ (07:33)
[2017-07-30] MEDS ORDERED: GLIPIZIDE10 MG PO (07:33)
[2017-07-30] MEDS ORDERED: GLUCOPHAGE1000 MG PO (07:35)
== END 2017-07-30 09:33 | disposition home or self-care (01) ==
LOC: D.ER 09:22 → D.EDHOLD 14:01 → OBSVTIME 14:02 → D.M2 20:40
PROVIDERS: Family Medicine
DX: E11.649 Type 2 diabetes mellitus with hypoglycemia without coma (principal); E11.40 Type 2 diabetes mellitus with diabetic neuropathy, unspecified; I10 Essential (primary) hypertension

== ENCOUNTER 2018-07-16 14:45 | Inpatient (IN) | payer MEDICARE, BC ==
[~2018-07-16] VITALS: Ht 177.8 cm; Wt 77.6 kg
[~2018-07-16 14:45] MED LIST changes: +BASAGLAR K100 UNIT/1 SQ; +GLUCOPHAGE1000 MG PO; +LISINOPRIL5 MG PO; +MIRAPEX1 MG PO; +PIOGLITAZONE15 MG PO; +TOPROL XL25 MG PO
--- NOTE | 2018-07-16 15:20 | NUR ---
PT RECEIVED FROM OUTPATIENT VIA W/C FOR DIRECT ADMIT TO ROOM 2140. ALERT AND ORIENTED. VOICES DIFFICULTY AMBULATING DUE TO PAIN IN LEFT FOOT. PT REPORTS HAVING "SORE BETWEEN THIRD AND FOURTH TOE". PT HAS HEALING SORE TO LEFT GREAT TOE COVERED WITH DRESSING, AND BETWEEN 3RD AND 4TH TOE. ORIENTED TO ROOM, CL AND BED CONTROLS. CL WITHIN REACH. ENCOURAGED TO CALL WITH NEEDS. WILL CONTINUE TO MONITOR.
[2018-07-16 15:41] VITALS: BP 140/59
[2018-07-16 16:29] LABS: BASOPHILS 0.1 % (0-2); HEMOGLOBIN 11.5 g/dL (13.5-17.5); IMMATURE GRANULOCYTES 0.1 % (0-5); LYMPHOCYTES 14.9 % (15-50); MCH 32.9 pg (26.0-34.0); MCHC 33.8 g/dL (31.0-37.0); MCV 97.1 fL (80.0-100.0); MEAN PLATELET VOLUME 10.2 fL (7.4-10.4); MONOCYTES 8.3 % (2-11); NEUTROPHILS 75.6 % (40-80); PLATELET COUNT 185 10x3/uL (130-400); RDW 13.2 % (11.5-14.5); WBC 7.3 10x3/uL (4.8-10.8)
[2018-07-16 17:03] VITALS: BP 140/59; BMI 25.4
[2018-07-16 17:16] LABS: C-REACTIVE PROTEIN 7.6 mg/dL (0.0-0.9); CALC OSMOLALITY 267 mosm/kg (275-300); CALCIUM 8.4 mg/dL (8.5-10.1); CARBON DIOXIDE 25.9 mmol/L (21.0-32.0); CHLORIDE - SERUM 97 mmol/L (98-107); CREATININE - SERUM 0.7 mg/dL (0.6-1.3); GLUCOSE 144 mg/dL (74-106); POTASSIUM - SERUM 4.7 mmol/L (3.5-5.1); SODIUM 131 mmol/L (136-145); UREA NITROGEN 17 mg/dL (7-18); eGFR NON AFRICAN AMERICAN > 90 mL/min (90-120)
[2018-07-16 17:31] LABS: ERYTHROCYTE SEDIMENTATION RATE 24 mm/hr (0-20)
[2018-07-16 20:00] VITALS: BP 109/51
[2018-07-17] VITALS: BP 132/51
--- NOTE | 2018-07-17 01:43 | NUR ---
I have reviewed this patient and I concur with the Shift Assessment completed by the Licensed Practical Nurse today this shift.
[2018-07-17 04:00] VITALS: BP 150/57
[2018-07-17 05:55] LABS: BASOPHILS 0.3 % (0-2); EOSINOPHILS 3.1 % (0-7); HEMATOCRIT 34.5 % (42.0-54.0); HEMOGLOBIN 11.6 g/dL (13.5-17.5); IMMATURE GRANULOCYTES 0.2 % (0-5); LYMPHOCYTES 27.2 % (15-50); MCH 32.7 pg (26.0-34.0); MCHC 33.6 g/dL (31.0-37.0); MCV 97.2 fL (80.0-100.0); MEAN PLATELET VOLUME 10.2 fL (7.4-10.4); MONOCYTES 9.2 % (2-11); PLATELET COUNT 159 10x3/uL (130-400); RBC 3.55 10x6/uL (4.20-6.10); RDW 12.9 % (11.5-14.5); WBC 6.2 10x3/uL (4.8-10.8)
[2018-07-17 06:11] LABS: CALC OSMOLALITY 266 mosm/kg (275-300); CALCIUM 8.4 mg/dL (8.5-10.1); CARBON DIOXIDE 25.7 mmol/L (21.0-32.0); CHLORIDE - SERUM 97 mmol/L (98-107); GLUCOSE 167 mg/dL (74-106); POTASSIUM - SERUM 4.6 mmol/L (3.5-5.1); SODIUM 130 mmol/L (136-145); UREA NITROGEN 19 mg/dL (7-18); eGFR NON AFRICAN AMERICAN 89 mL/min (90-120)
[2018-07-17 06:14] LABS: CREATININE - SERUM 0.9 mg/dL (0.6-1.3)
--- NOTE | 2018-07-17 07:42 | NUR ---
PT AWKAE AND ORIENTED, NO COMPLAINTS AT THIS TIME. CL IN REACH, SRXX2.
[2018-07-17 08:00] VITALS: BP 151/53
[2018-07-17 12:00] VITALS: BP 129/45
[2018-07-17 13:32] VITALS: BMI 24.9
--- NOTE | 2018-07-17 13:47 | NUR ---
I/V INFILTRATED. WILL RESITE WHEN ABLE. CL IN REACH, SRX2
[2018-07-17 16:30] VITALS: BP 160/65
--- NOTE | 2018-07-17 19:47 | NUR ---
EVENING ROUNDS COMPLETED. REPORT RECEIVED. PT SITTING UP IN BED WITH EYES OPEN, RR EVEN AND UNLABORED. BED IN LOW POSITION. NO S/S OF DISTRESS NOTED. INTRODUCED SELF TO PT. PT REQUESTED A NICOTINE PATCH AND A PAIN PILL. ADMINISTERED ORDERED ANALGESIC AND ORDERED NICOTINE PATCH AFTER REMOVING OLD NICOTINE PATCH. PT DENIES FURTHER NEEDS AT THIS TIME. CALL LIGHT IN REACH. WILL CTM.
[2018-07-17 20:18] VITALS: BP 138/52
[2018-07-18] VITALS (7 sets, daily range): BP systolic 121–167; BP diastolic 52–69
--- NOTE | 2018-07-18 00:19 | NUR ---
I have reviewed this patient and I concur with the Shift Assessment completed by the Licensed Practical Nurse today this shift.
[2018-07-18 05:48] LABS: BASOPHILS 0.8 % (0-2); HEMATOCRIT 35.2 % (42.0-54.0); HEMOGLOBIN 11.9 g/dL (13.5-17.5); LYMPHOCYTES 24.1 % (15-50); MCH 32.6 pg (26.0-34.0); MCHC 33.8 g/dL (31.0-37.0); MCV 96.4 fL (80.0-100.0); MEAN PLATELET VOLUME 9.6 fL (7.4-10.4); MONOCYTES 9.9 % (2-11); NEUTROPHILS 60.2 % (40-80); PLATELET COUNT 173 10x3/uL (130-400); RBC 3.65 10x6/uL (4.20-6.10); RDW 12.7 % (11.5-14.5); WBC 5.2 10x3/uL (4.8-10.8)
[2018-07-18 06:22] LABS: CALC OSMOLALITY 266 mosm/kg (275-300); CALCIUM 8.7 mg/dL (8.5-10.1); CARBON DIOXIDE 25.4 mmol/L (21.0-32.0); CHLORIDE - SERUM 98 mmol/L (98-107); CREATININE - SERUM 0.8 mg/dL (0.6-1.3); GLUCOSE 146 mg/dL (74-106); POTASSIUM - SERUM 4.5 mmol/L (3.5-5.1); SODIUM 131 mmol/L (136-145); eGFR NON AFRICAN AMERICAN > 90 mL/min (90-120)
[2018-07-18 06:23] LABS: UREA NITROGEN 14 mg/dL (7-18)
--- NOTE | 2018-07-18 07:08 | NUR ---
PT AWAKE AND ORIETED. NO QUESTIONS/COMPLAINTS/NEEDS STATED AT THIS TIME. CL INREACH, SRX2.
--- NOTE | 2018-07-18 15:01 | NUR ---
PT TOOK A SHOWER, COVERED WRAPPED FOOT WITH PLASTIC BAG AND TAPE TO PREVENT SOAKING. STILL WAITING FOR DR. BLANCO TO CONSULT TO LOOK AT IT. PT STATES HE FEELS MUCH BETTER WITH THE SHOWER. NO COMPLAINTS/CONCERNS AT THIS TIME. NO FAMILY AT BEDSIDE. SEDA VALERA, SRX2.
--- NOTE | 2018-07-18 15:07 | NUR ---
I have reviewed this patient and I concur with the Shift Assessment completed by the Licensed Practical Nurse today this shift.
--- NOTE | 2018-07-18 19:00 | NUR ---
PATIENT LAYING IN BED. NO COMPLAINTS AT THIS TIME. NO DISTRESS NOTED.
--- NOTE | 2018-07-18 23:41 | NUR ---
PATIENT SITTING UP IN BED. NO COMPLAINTS OR DISTRESS NOTED.
--- NOTE | 2018-07-19 02:06 | NUR ---
I have reviewed this patient and I concur with the Shift Assessment completed by the Licensed Practical Nurse today this shift.
[2018-07-19 03:45] VITALS: BP 124/55
[2018-07-19 06:27] LABS: BASOPHILS 0.4 % (0-2); CALC OSMOLALITY 270 mosm/kg (275-300); CALCIUM 8.7 mg/dL (8.5-10.1); CARBON DIOXIDE 26.4 mmol/L (21.0-32.0); CHLORIDE - SERUM 101 mmol/L (98-107); CREATININE - SERUM 0.8 mg/dL (0.6-1.3); GLUCOSE 138 mg/dL (74-106); HEMATOCRIT 33.8 % (42.0-54.0); HEMOGLOBIN 11.5 g/dL (13.5-17.5); LYMPHOCYTES 34.1 % (15-50); MCH 32.4 pg (26.0-34.0); MCV 95.2 fL (80.0-100.0); MEAN PLATELET VOLUME 9.8 fL (7.4-10.4); MONOCYTES 9.2 % (2-11); NEUTROPHILS 49.3 % (40-80); PLATELET COUNT 201 10x3/uL (130-400); POTASSIUM - SERUM 4.4 mmol/L (3.5-5.1); RBC 3.55 10x6/uL (4.20-6.10); RDW 12.5 % (11.5-14.5); SODIUM 134 mmol/L (136-145); UREA NITROGEN 14 mg/dL (7-18); WBC 4.6 10x3/uL (4.8-10.8); eGFR NON AFRICAN AMERICAN > 90 mL/min (90-120)
--- NOTE | 2018-07-19 07:18 | NUR ---
AM ROUNDS- PT A/O X4, RESP EVEN AND NONLABORED ON RA. RT FA IV SL. 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 PT REQUESTING COFFEE, WILL PROVIDE PT WITH COFFEE. PT DENIES ANY OTHER NEEDS AT THIS TIME. CALL LIGHT IN REACH, NAD NOTED,W ILL CONTINUE PLAN OF CARE.
--- NOTE | 2018-07-19 07:51 | NUR ---
CALLED PHARMACY AND SPOKE WITH MIKE, SKYED HER THAT MED 2 PYXIS IS OUT OF THE NICOTINE PATCH.
[2018-07-19 07:55] VITALS: BP 123/69
[2018-07-19 08:47] VITALS: Ht 177.8 cm; Wt 77.6 kg
--- NOTE | 2018-07-19 08:47 | NUR ---
AM MEDS GIVEN AT THIS TIME. EXCEPT NICOTINE PATCH, WAITING ON PHARMACY TO BRING IT UP. PROVIDED PT WITH ICE WATER AND DIET LEMON NUIQSUT. PT DENIES ANY OTHER NEEDS AT THIS TIME. CALL LIGHT IN REACH, NAD NOTED,W ILL CONTINUE TO MONITOR.
--- NOTE | 2018-07-19 11:35 | NUR ---
BLOOD SUGAR OF 203, 8UNITS OF HUMALOG GIVEN PER S/S. IVPB OF ADELSO SCOTT ALSO. PT DENIES ANY NEEDS AT THIS TIME. CALL LIGHT IN REACH, FAMILY AT BEDSIDE, NAD NOTED,W ILL CONTINUE TO MONITOR.
[2018-07-19 12:06] VITALS: BP 174/69
--- NOTE | 2018-07-19 14:35 | NUR ---
PER KATE GRAVES INFECTIOUS CONTROL NURSE, PT CAN COME OFF ISOLATION.
[2018-07-19 16:30] VITALS: BP 140/44
--- NOTE | 2018-07-19 16:53 | NUR ---
RT WRIST IV INFILTRATED, TURNED OFF IVPB VANCOMYCIN. D/C IV WITH CATHETER TIP INTACT. WAS GOING TO START NEW IV, BUT PT WANTED TO WAIT UNTIL HE IS DONE WITH DINNER. WILL START NEW IV ONCE PT IS FINISHED EATING.
--- NOTE | 2018-07-19 19:44 | NUR ---
EVENING ROUNDS COMPLETED. REPORT RECEIVED. PT SITTING UP IN BED WITH EYES OPEN, RR EVEN AND UNLABORED. BED IN LOW POSITION. NO S/S OF DISTRESS NOTED. INTRODUCED SELF TO PT. PT DENIES FURTHER NEEDS AT THIS TIME. CALL LIGHT IN REACH. WILL CTM.
[2018-07-19 21:24] VITALS: BP 128/45
[2018-07-20] VITALS (7 sets, daily range): BP systolic 91–164; BP diastolic 51–59
--- NOTE | 2018-07-20 05:32 | NUR ---
I have reviewed this patient and I concur with the Shift Assessment completed by the Licensed Practical Nurse today this shift.
[2018-07-20 07:06] LABS: BASOPHILS 0.7 % (0-2); EOSINOPHILS 5.4 % (0-7); HEMOGLOBIN 11.5 g/dL (13.5-17.5); IMMATURE GRANULOCYTES 0.2 % (0-5); LYMPHOCYTES 25.7 % (15-50); MCH 32.3 pg (26.0-34.0); MCHC 33.8 g/dL (31.0-37.0); MCV 95.5 fL (80.0-100.0); MEAN PLATELET VOLUME 10.2 fL (7.4-10.4); MONOCYTES 10.6 % (2-11); NEUTROPHILS 57.4 % (40-80); PLATELET COUNT 188 10x3/uL (130-400); RBC 3.56 10x6/uL (4.20-6.10); RDW 12.6 % (11.5-14.5); WBC 4.1 10x3/uL (4.8-10.8)
[2018-07-20 07:19] LABS: CALC OSMOLALITY 276 mosm/kg (275-300); CALCIUM 8.6 mg/dL (8.5-10.1); CARBON DIOXIDE 27.4 mmol/L (21.0-32.0); CHLORIDE - SERUM 102 mmol/L (98-107); CREATININE - SERUM 0.7 mg/dL (0.6-1.3); GLUCOSE 181 mg/dL (74-106); POTASSIUM - SERUM 4.5 mmol/L (3.5-5.1); SODIUM 136 mmol/L (136-145); UREA NITROGEN 13 mg/dL (7-18); VANCOMYCIN - TROUGH 12.3 ug/mL (10.0-20.0); eGFR NON AFRICAN AMERICAN > 90 mL/min (90-120)
--- NOTE | 2018-07-20 07:40 | NUR ---
PT RESTING IN BED, EYES CLOSED. RESPIRATIONS EVEN AND UNLABORED. AROUSES TO VOICE. ALERT AND ORIENTED. UP AD JAYASHREE. DRESSING TO LEFT FOOT, C/D/I. PT ACHS. IV TO RIGHT FOREARM, SL. SITE PATENT WITHOUT REDNESS OR SWELLING. NO C/O PAIN. NO S/S OF ACUTE DISTRESS NOTED. CALL LIGHT IN REACH. WILL CONTINUE TO MONITOR.
--- NOTE | 2018-07-20 10:47 | NUR ---
I have reviewed this patient and I concur with the Shift Assessment completed by the Licensed Practical Nurse today this shift.
--- NOTE | 2018-07-20 13:05 | NUR ---
RECEIVED PT FROM OR, BONE BIOPSY DONE TODAY. VITALS STABLE. PT ALERT AND ORIENTED.
--- NOTE | 2018-07-20 13:52 | NUR ---
Nutrition follow-up: Pt has been NPO for bone biopsy today. PO intake of an ADA consistent CHO diet has been ~100% of most meals Labs reviedwed Wt: 167# +BM RDN following.
--- NOTE | 2018-07-20 15:12 | OP ---
PATIENT NAME: SHANNON KELLEY MEDICAL RECORD: [id number] :50 LOCATION:D. D.2140 ADMISSION DATE:07/16/18 SURGEON: NAYELI BLANCO DO DATE OF OPERATION: 07/20/2018 PROCEDURE PERFORMED: Bone biopsy of the left third middle phalanx and left fourth toe middle phalanx. PREOPERATIVE DIAGNOSES: Osteomyelitis of left third and fourth toes, diabetic ulcer on each toe. POSTOPERATIVE DIAGNOSES: Osteomyelitis of left third and fourth toes, diabetic ulcer on each toe. INDICATIONS: Mr. Kelley is a 68-year-old male who has had a nonhealing wound on the medial side of his fourth toe and the lateral side of his third toe for quite some time. He had been on IV antibiotics to no avail. It had not been healing and the patient has been on IV antibiotics in the hospital. He was consulted after MRI was done showing osteomyelitis. In order to guide treatment, a bone biopsy was requested. We continued local wound care. He was consented for the bone biopsy. DESCRIPTION OF PROCEDURE: The patient was taken to the operative suite and given TIVA. The left foot was prepped and draped in sterile fashion. A small incision was made over the middle phalanx of both the third and fourth toes and then a Jamshidi needle was used to go in and get a biopsy of the bone on each, putting them in separate containers and using separate Jamshidi needles. These were then sent to the lab. The small incisions were closed with 4-0 Monocryl in a simple fashion. I then dressed with Adaptic in between the toes, Telfa, and Kerlix; and then wrapped lightly with Coban. He was then awakened and taken to his room in stable condition. BLOOD LOSS: Minimal. COMPLICATIONS: None. TRANSINT:[id number] Voice Confirmation ID: [id number] DOCUMENT ID: [id number] NAYELI BLANCO DO at 1512 CC: [id number] DICTATION DATE: 07/20/18 1304 MARKETING ASSISTANT: 07/20/18 1405 ADM IN [place] [id number] [place] [address]
--- NOTE | 2018-07-20 18:35 | NUR ---
PT RESTING IN BED, EYES CLOSED. RESPIRATIONS EVEN AND UNLABORED. AROUSES TO VOICE. NO C/O PAIN. NO S/S OF ACUTE DISTRESS NOTED. CALL LIGHT IN REACH. WILL CONTINUE TO MONITOR.
--- NOTE | 2018-07-20 19:20 | NUR ---
PT RESTING IN BED. AAO, UP AD JAYASHREE WILL CALL FOR ASSIST WHEN NEEDED. LEFT FOOT DRSG NOTED. CDI CAP REFILL LESS THAN 3 SEC TOES PINK AND COOL RIGHT FOREARM 20G PIV S/L PT ATE 90% OF DINNER. NURSE ASKED ABOUT PAIN AND PT SAID THERE IS PAIN AND THE TYLENOL 3 IS NOT GIVING RELEIF. WILL PAGE DOCTOR SUPERVISOR DRY CELL ASSEMBLY NAME AND DATE PLACED ON BOARD. BEDLOW AND CALL LIGHT IN REACH. PT WILL CALL FOR ASSIST WHEN NEEDED.WILL CPOC
--- NOTE | 2018-07-20 20:13 | NUR ---
CALLED DR MERA FOR DR VIRK. WAITING FOR DR FERRO TO CALL BACK. TYLENOL 3 NOT RELIEVING LEFT FOOT PAIN.
--- NOTE | 2018-07-20 20:23 | NUR ---
DR FERRO CALLED BACK AND NURSE READ BACK ORDER TO VERIFY PERCOCET 5/325 ONE TAB EVERY 4 HOURS NEEDED FOR PAIN.
--- NOTE | 2018-07-20 21:20 | NUR ---
PT FSBS IS 100 NO INSULIN NEEDED PER SLIDING SCALE. SNACK PROVIDED. PT WILL CALL FOR ASSIST WHEN NEEDED. WILL CPOC
--- NOTE | 2018-07-20 21:24 | NUR ---
RIGHT FOREARM 20G INDURATION NOT PATENT. REMOVED WITH CATH INTACT.
--- NOTE | 2018-07-20 22:00 | NUR ---
LEFT HAND 20G PLACED. 2 ATTEMPTS. ROCEPHIN INFUSING. PT DENIES ANY OTHER NEEDS. WILL CPOC
[2018-07-21 00:14] VITALS: BP 124/84
--- NOTE | 2018-07-21 02:48 | NUR ---
PT ASLEEP. AROUSES TO PHYSICAL STIMULI, DENIES ANY NEEDS. NO S/S OF DISTRESS. WILL CPOC
[2018-07-21 04:46] VITALS: BP 134/51
--- NOTE | 2018-07-21 06:36 | NUR ---
FSBS IS 173 PT DECLINES ANY INSULIN AT THIS TIME. APPLE JUICE GIVEN UPON REQUEST. PT STATES PAIN IS 2/10 STATES DOESNT NEED ANY PAIN MEDICATION AT THIS TIME. PT HAS NO S/S OF DISTRESS. WILL CPOC
--- NOTE | 2018-07-21 07:10 | NUR ---
REPORT RECEIVED FROM LEARNING AND DEVELOPMENT CONSULTANT AND PATIENT CARE ASSUMED. PATIENT LAYING IN BED ON BACK WITH EYES CLOSED AND BREATHING EVENLY. PATIENT IS STABLE AND VSS. WILL CONTINUE WITH PLAN OF CARE. SR UP X 2 BED IN LOW POSTION AND CALL LIGHT IN REACH.
[2018-07-21 08:15] VITALS: BP 154/50
[2018-07-21 11:40] VITALS: BP 132/63
--- NOTE | 2018-07-21 12:44 | NUR ---
PATIENT SITTING UP IN BED EATING LUNCH AND VISITING WITH AT . PATIENT IS STABLE AND VSS. PATIENT DENIES ANY NEEDS OR PAIN. WILL CONTINUE TO MONITOR. SR UP X 2 BED IN LOW POSTION AND CALL LIGHT IN REACH.
[2018-07-21 15:24] VITALS: BP 156/61
--- NOTE | 2018-07-21 17:13 | MORECARE ---
CASE MANAGEMENT DISCHARGE SUMMARY PATIENT: SHANNON TOMPKINS UNIT: [id number] ADM DATE: 07/16/18 AGE: 68 : 50 SEX: M ROOM/BED: D.2140 AUTHOR: BHAVESH SHIPLEY PHYSICIAN: REFERRING PHYSICIAN: JUANJO VIRK MD DATE OF SERVICE: 07/21/18 Discharge Plan Patient Name: SHANNON TOMPKINS [facility] [facility] 1950 Planned Disposition: Home with Infusion Therapy Services Anticipated Discharge Date: Discharge Date: Expected LOS: Initial Reviewer: [email or web address] Initial Review Date: 07/16/2018 Generated: 07/21/18 6:13 pm Coverage Notice Reviewer: [email or web address] Shimon Phan Notice Issued Date-Time: 07/21/2018 9:45 Notice Type: IM Discharge Notice Notice Delivered To: Patient Relationship to Patient: Doll Repairer Name: Delivery Method: HAND - Hand Delivered Elida Days: Prior Verbal Notification: Recipient Understood Notice: Yes Recipient Signature: Yes Med Rec Note Co-signed by Attending: Coverage Notice Comment: Reviewer: [id number] Phan Notice Issued Date-Time: 07/21/2018 9:45 Notice Type: Patient Choice Letter Notice Delivered To: Patient Relationship to Patient: Doll Repairer Name: Delivery Method: HAND - Hand Delivered Elida Days: Prior Verbal Notification: Recipient Understood Notice: Yes Recipient Signature: Yes Med Rec Note Co-signed by Attending: Coverage Notice Comment: NO CHOICE FOR HHC OR INFUSION PHARMACY PROVIDER Patient Name: SHANNON TOMPKINS Page [phone] at 1713 All edits/amendments must be made on the electronic document DICTATION DATE: 07/21/181712 UNDERWRITING CONSULTANT: SHARA 07/21/181712 RPT#: [id number] DC DATE: STATUS: ADM IN [facility] [address] [place] [address] END OF REPORT
--- NOTE | 2018-07-21 17:24 | MORECARE ---
CASE MANAGEMENT DISCHARGE SUMMARY PATIENT: SHANNON TOMPKINS UNIT: [id number] ADM DATE: 07/16/18 AGE: 68 : 50 SEX: M ROOM/BED: D.5660 AUTHOR: VIOLETTA,DOC PHYSICIAN: REFERRING PHYSICIAN: JUANJO VIRK MD DATE OF SERVICE: 07/21/18 Discharge Plan Patient Name: SHANNON TOMPKINS Facility: [facility]:[place] : 1950 Planned Disposition: Home with Infusion Therapy Services Anticipated Discharge Date: Discharge Date: Expected LOS: Initial Reviewer: [id number] Initial Review Date: 07/16/2018 Generated: 07/21/18 6:24 pm Comments DCP- Discharge Planning Updated by [id number]: Babak Phan on 07/21/18 4:[address] Patient Name: SHANNON TOMPKINS Admission Status: Urgent Accout number: [id number] Admission Date: 07-16-2018 : 1950 Admission Diagnosis:CELLULITIS OF LEFT LOWER LIMB Attending: JUANJO VIRK Current LOS: 5 Anticipated DC Date: Planned Disposition: Home with Infusion Therapy Services Primary Insurance: MEDICARE A & B PLANNED EXTERNAL PROVIDER: NO PROVIDER PREFERNCE FOR HOME HEALTH OR INFUSION PHARMACY Discharge Planning Comments: CM MET WITH PT IN ROOM TO DISCUSS DISCHARGE PLANNING AND NEEDS. PT REPORTS LIVING AT HOME INDEPENDENTLY WITH SPOUSE. PT HAS HOME OXYGEN FROM [employer]. PT HAS NO OUTSIDE SERVICES ASSISTING IN THE HOME. CM DISCUSSED AVAILABILITY OF HOME HEALTH, REHAB SERVICES AND MEDICAL EQUIPMENT. PT BELIVES HE WILL NEED 6 WEEKS OF IV ANTIBOTIC INFUSION AT HOME, CM GAVE PROVIDER LISTING OF HOME HEALTH AND HOME INFUSON COMPANIES; PT HAS NO PREFENCE, CHOICE SIGNED FOR BOTH. 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 PT REPORTS HIS WILL PICK HIM UP FOR DISCHARGE HOME. IMPORTANT MESSAGE FROM MEDICARE PROVIDED AND EXPLAINED. CM TO ARRANGE HOME HEALTH AND HOME INFUSION, IF NEEDED, WITH PHYSICIAN ORDERS. CM TO CONTINUE TO FOLLOW AND ASSIST NEEDED. Mine Administrator Supervisor: Babak Phan DCPIA - Discharge Planning Initial Assessment Updated by [id number]: Babak Phan on 07/21/18 5:14 pm * Is the patient Alert and Oriented? Yes * How many steps to enter\exit or inside your home? * PCP DR. VIRK * Pharmacy [facility] ([place]) * Preadmission Environment Home with Family * ADLs Independent * Equipment Oxygen * Other Equipment HOME OXYGEN ONLY [facility] - PROVIDER * List name and contact numbers for known caregivers / representatives who currently or will assist patient after discharge: CHIQUITA TOMPKINS, SPOUSE, * Verbal permission to speak to the caregivers and representatives has been obtained from the patient. Yes * Community resources currently utilized None * Please name any agencies selected above. NONE * Additional services required to return to the preadmission environment? Yes * Can the patient safely return to the preadmission environment? Yes * Has this patient been hospitalized within the prior 30 days at any hospital? No Coverage Notice Reviewer: GARCÍA Phan Notice Issued Date-Time: 07/21/2018 9:45 Notice Type: IM Discharge Notice Notice Delivered To: Patient Relationship to Patient: Telecom Coordinator Name: Delivery Method: HAND - Hand Delivered Elida Days: Prior Verbal Notification: Recipient Understood Notice: Yes Recipient Signature: Yes Med Rec Note Co-signed by Attending: Coverage Notice Comment: Reviewer: GARCÍA Phan Notice Issued Date-Time: 07/21/2018 9:45 Notice Type: Patient Choice Letter Notice Delivered To: Patient Relationship to Patient: Telecom Coordinator Name: Delivery Method: HAND - Hand Delivered Elida Days: Prior Verbal Notification: Recipient Understood Notice: Yes Recipient Signature: Yes Med Rec Note Co-signed by Attending: Coverage Notice Comment: NO CHOICE FOR HHC OR INFUSION PHARMACY PROVIDER Last DP export: 07/21/18 4:13 p Patient Name: SHANNON TOMPKINS Page [phone] at 1724 All edits/amendments must be made on the electronic document DICTATION DATE: 07/21/181723 COMMISSIONING ENGINEER: SHARA 07/21/181723 RPT#: [id number] DC DATE: STATUS: ADM IN [facility] [address] [place] [address] END OF REPORT
--- NOTE | 2018-07-21 19:10 | NUR ---
PT RESTING IN BED. AAO, UP AD JAYASHREE. GAIT STEADY. PT BEDLOW AND ALL LIGHT IN REACH. LEFT HAND 20G S/L LEFT UPPER ARM PICC LINE NOTED. PT WILL CALL FOR ASSIST WHEN NEEDED. NO S/S OF DISTRESS. NAME AND DATE PLACED ON BOARD. WILL CPOC
--- NOTE | 2018-07-21 22:23 | NUR ---
FSBS IS 301 12 UNITS GIVEN ORDERED. PERCOCET GIVEN FOR LEFT FOOT PAIN. PT WILL CALL FOR ASSIST WHEN NEEDED. NO S/S OF DISTRESS. SNACK PROVIDED. PT WILL CALL FOR ASSIST WHEN NEEDED,. WILL CPOC
[2018-07-21 22:50] VITALS: BP 135/48
[2018-07-22 05:14] VITALS: BP 111/84
--- NOTE | 2018-07-22 06:33 | NUR ---
FSBS IS 205 8 UNITS GIVEN ORDERED. PT STATES PAIN IS 1/10 AND HE SLEPT WELL. DENIES ANY NEEDS,. NO S/S OF DISTRESS. WILL CPOC
[2018-07-22 07:27] VITALS: BP 124/66
[2018-07-22 11:10] VITALS: BP 158/60
[2018-07-22 15:22] VITALS: BP 129/62
--- NOTE | 2018-07-22 19:54 | NUR ---
PT RESTING IN BED. AAO, UP AD JAYASHREE. PT STATES READY TO GO HOME FEELING RESTLESS. ASKS FOR A SNACK. PT RECEIVED. PT HAS ON S/S OF DISTRESS. BEDLOW AND CALL LIGHT IN REACH. NAME AND DATE PLACED ON BOARD. WILL CPOC
[2018-07-22 20:00] VITALS: BP 117/47
--- NOTE | 2018-07-22 21:59 | NUR ---
FSBS IS 326 12 UNITS GIVEN ORDERED. NOURISHMENT OFFERED. SNACK PROVIDED. WILL CPOC
--- NOTE | 2018-07-22 22:05 | NUR ---
PT STATES TRY A TYLENOL 3 FOR NOW. DENIES ANY OTHER NEEDS. WILL CPOC
[2018-07-23] VITALS: BP 117/34
--- NOTE | 2018-07-23 00:08 | NUR ---
PERCOCET GIVEN FOR LEFT FOOT DISCOMFORT, PT DENIES ANY OTHER NEEDS. WILL CPOC
--- NOTE | 2018-07-23 00:56 | NUR ---
PT LAYING ON LEFT SIDE, ASLEEP WITH RESP EVEN AND UNLABORED. NO S/S OF DISTRESS. BEDLOW AND CALL LIGHT IN REACH. WILL CPOC
[2018-07-23 04:30] VITALS: BP 127/43
--- NOTE | 2018-07-23 07:51 | NUR ---
PT ASLEEP, WOKE EASILY TO NOISES IN ROOM. NOW A/OX4. NO COMPLAINTS/CONCERNS VOICED, OTHER THAN HIS INTENSE DESIRE TO GO HOME SOON POSSIBLE. NO FAMILY AT BEDSIDE AT THIS TIME. CL IN REACH, SRX2.
[2018-07-23 08:27] LABS: BASOPHILS 0.6 % (0-2); EOSINOPHILS 5.9 % (0-7); HEMATOCRIT 38.1 % (42.0-54.0); HEMOGLOBIN 12.9 g/dL (13.5-17.5); LYMPHOCYTES 28.1 % (15-50); MCH 32.7 pg (26.0-34.0); MCHC 33.9 g/dL (31.0-37.0); MCV 96.7 fL (80.0-100.0); MEAN PLATELET VOLUME 9.4 fL (7.4-10.4); MONOCYTES 9.2 % (2-11); NEUTROPHILS 56.2 % (40-80); RBC 3.94 10x6/uL (4.20-6.10); RDW 12.6 % (11.5-14.5); WBC 5.1 10x3/uL (4.8-10.8)
[2018-07-23 08:28] LABS: PLATELET COUNT 250 10x3/uL (130-400)
[2018-07-23 08:30] VITALS: BP 139/58
[2018-07-23 08:47] LABS: C-REACTIVE PROTEIN 0.9 mg/dL (0.0-0.9); CALC OSMOLALITY 276 mosm/kg (275-300); CALCIUM 9.2 mg/dL (8.5-10.1); CARBON DIOXIDE 29.2 mmol/L (21.0-32.0); CHLORIDE - SERUM 101 mmol/L (98-107); CREATININE - SERUM 0.8 mg/dL (0.6-1.3); GLUCOSE 166 mg/dL (74-106); POTASSIUM - SERUM 4.4 mmol/L (3.5-5.1); SODIUM 136 mmol/L (136-145); UREA NITROGEN 16 mg/dL (7-18); eGFR NON AFRICAN AMERICAN > 90 mL/min (90-120)
--- NOTE | 2018-07-23 09:06 | NUR ---
Bone biopsy by Dr. Morales on 07/20/18 of left #3 and #4 toes. No redness, edema, drainage or odor noted during dressing change. Toes continue to be tender to the touch. Recommended applying adaptic between toes and wrapping foot with kerlix. Will monitor as needed.
[2018-07-23 10:37] LABS: ERYTHROCYTE SEDIMENTATION RATE 10 mm/hr (0-20)
[2018-07-23 12:30] VITALS: BP 161/59
--- NOTE | 2018-07-23 13:47 | NUR ---
Nutrition follow-up: Diet: ADA consistent CHO PO intake 100% of most meals Labs reviewed Wt: 170# Last BM charted 07/17? RDN following.
[2018-07-23 16:30] VITALS: BP 145/46
--- NOTE | 2018-07-23 18:53 | NUR ---
PT AWAKE AND ORIENTED. NO COMP[LAINTS/CONCERNS, CL IN REACH, SRX2.
--- NOTE | 2018-07-23 19:37 | NUR ---
EVENING ROUNDS COMPLETED. REPORT RECEIVED. PT SITTING UP IN BED WITH EYES OPEN, RR EVEN AND UNLABORED. NO S/S OF DISTRESS NOTED. INTRODUCED SELF TO PT. PT DENIES FURTHER NEEDS AT THIS TIME. BED IN LOW POSITION. CALL LIGHT IN REACH. WILL CTM.
[2018-07-23 20:08] VITALS: BP 134/57
--- NOTE | 2018-07-23 22:34 | NUR ---
I have reviewed this patient and I concur with the Shift Assessment completed by the Licensed Practical Nurse today this shift.
--- NOTE | 2018-07-24 00:36 | NUR ---
PT IN BED RESTING EVEN AND UNALBORED RESPIRATIONS NOTED.
[2018-07-24 00:45] VITALS: BP 106/58
[2018-07-24 03:49] VITALS: BP 143/74
--- NOTE | 2018-07-24 07:42 | NUR ---
PT ASLEEP, RESITNG PEACEFULLY. DID NOT WAKE I ENTERED, DID NOT FURTHER DISTURB AT THIS TIME. CL IN REACH, SRX2. NO FAMILY PRESENT.
[2018-07-24 08:31] VITALS: BP 161/51
--- NOTE | 2018-07-24 10:55 | NUR ---
I have reviewed this patient and I concur with the Shift Assessment completed by the Licensed Practical Nurse today this shift.
[2018-07-24 11:30] VITALS: BP 165/60
[2018-07-24 16:34] VITALS: BP 123/54
--- NOTE | 2018-07-24 17:14 | NUR ---
PT LYING IN BED, PLAYING ON HIS PHONE. STAES THAT HE IS BOARD OF HIS MIND AND CAN'T WAIT TO LEAVE THIS PLACE. BUT HE IS PLESANT ABOUT IT. NO COMPLAINTS/CONCERNS STATED AT THIS TIME. CL IN REACH, SRX2.
--- NOTE | 2018-07-24 18:44 | NUR ---
PTS PERIPHERAL I/V IN LEFT ARM CAME OUT UNDER UNKNOWN CIRUCMSTANCES. DID NOT HAVE TO RESTART, PT ALSO HAS MIDLINE CATH WHICH WE CAN USE FOR FUTURE ANTIBIOTICS. NO COMPLAINTS/CONCERNS, CL IN REACH, SRX2.
--- NOTE | 2018-07-24 19:57 | NUR ---
EVENING ROUNDS COMPLETED. REPORT RECEIVED. PT SITTING UP IN BED WITH EYES OPEN, RR EVEN AND UNLABORED. ANSWERS QUESTIONS APPROPRIATELY. NO S/S OF DISTRESS. BED IN LOW POSITION. CALL LIGHT IN REACH. INTRODUCED SELF TO PT. PT DENIES COMPLAINTS OF PAIN AND FURTHER NEEDS AT THIS TIME. CALL LIGHT IN REACH. WILL CTM.
[2018-07-24 20:14] VITALS: BP 133/53
[2018-07-25 03:49] VITALS: BP 131/46
--- NOTE | 2018-07-25 04:28 | NUR ---
I have reviewed this patient and I concur with the Shift Assessment completed by the Licensed Practical Nurse today this shift.
--- NOTE | 2018-07-25 07:34 | NUR ---
PT IS AWAKE AND ORIETED LYING IN BED. NO COMPLAINTS/CONCERNS OTHER THAN HE IS EXTREMELY BORED AND CAN'T WAIT TO LEAVE. PT KNOWS HE WON'T LEAVE UNTIL THURSDAY AND IS OK WITH THAT. NO FAMILY AT BEDSIDE. CL IN REACH, SRX2.
[2018-07-25 10:00] VITALS: BP 135/46
--- NOTE | 2018-07-25 18:02 | NUR ---
PT RELAXING IN BED, WATCHING HIS PHONE. STATES HE HAS HAD TWO BOWEL MOVEMENTS SINCE TAKING THE MILK OF MAGNESIA EARLIER TODAY AND IS STARTING TO FEEL MUCH BETTER WITH THE RELIEF. NO COMPLAINTS OR CONCERNS STATED AT THIS TIME, ALL QUESTIONS ANSWERED TO THE BEST OF MY ABILITIES. CL IN REACH, SRX2.
--- NOTE | 2018-07-25 18:21 | NUR ---
I have reviewed this patient and I concur with the Shift Assessment completed by the Licensed Practical Nurse today this shift.
--- NOTE | 2018-07-25 19:59 | NUR ---
EVENING ROUNDS COMPLETED. REPORT RECEIVED. PT SITTING UP IN BED WITH EYES OPEN, RR EVEN AND UNLABORED. NO S/S OF DISTRESS NOTED. BED IN LOW POSITION. INTRODUCED SELF TO PT. PT DENIES FURTHER NEEDS AT THIS TIME. PT STATES HE IS GOING TO AMBULATE. OBSERVED PT AMBULATE IN ROOM WITHOUT NEED OF ASSISTANCE. PT STATES HE DOES NOT HAVE SIGNIFICANT AMOUNTS OF PAIN IN LEFT FOOT. INSTRUCTED PT TO PACE SELF TO PREVENT EXHAUSTION. PT STATES UNDERSTANDING. CALL LIGHT IN REACH. WILL CTM.
[2018-07-25 20:35] VITALS: BP 122/47
[2018-07-26 01:13] VITALS: BP 122/49
--- NOTE | 2018-07-26 04:09 | NUR ---
I have reviewed this patient and I concur with the Shift Assessment completed by the Licensed Practical Nurse today this shift.
--- NOTE | 2018-07-26 05:23 | NUR ---
left upper arm picc line dressing changed, dated and initialed.
[2018-07-26 05:26] VITALS: BP 105/54
[2018-07-26 07:38] VITALS: BP 146/52
--- NOTE | 2018-07-26 07:52 | NUR ---
ROUNDING DONE WITH PATIENT HAVING NO COMPLAINTS AT THIS TIME. ON ROOM AIR. LEFT UPPER ARM PICC SEEN WITH C/D/I DRESSING. ORANGE SWAB CAPS IN USE (DOUBLE LUMEN). PATIENT IS UP AD JAYASHREE. WILL MONITOR FOR NEEDS.
--- NOTE | 2018-07-26 11:21 | NUR ---
AT BEDSIDE, PATIENT DENEIS NEEDS EXCEPT TO GO HOME. PLANNING FOR DISCHARGE TOMORROW.
[2018-07-26 11:56] VITALS: BP 150/54
--- NOTE | 2018-07-26 13:29 | NUR ---
RESTING WITH EYES CLOSED, GLASSES ON. RESP ARE EVEN.
[2018-07-26 16:14] VITALS: BP 135/54
--- NOTE | 2018-07-26 16:47 | NUR ---
UP AMBULATING IN HALLWAY.
[2018-07-26 20:00] VITALS: BP 114/55
--- NOTE | 2018-07-26 21:56 | NUR ---
EVENING ROUNDS COMPLETED. REPORT RECEIVED. PT SITTING UP IN BED WITH EYES OPEN, RR EVEN AND UNLABORED. NO S/S OF DISTRESS NOTED. INTRODUCED SELF TO PT. PT DENIES FURTHER NEEDS AT THIS TIME. CALL LIGHT IN REACH, WILL CTM.
[2018-07-27] VITALS: BP 103/54
--- NOTE | 2018-07-27 03:24 | NUR ---
I have reviewed this patient and I concur with the Shift Assessment completed by the Licensed Practical Nurse today this shift.
[2018-07-27 04:00] VITALS: BP 126/51
[2018-07-27 05:42] LABS: BASOPHILS 0.5 % (0-2); EOSINOPHILS 4.1 % (0-7); HEMATOCRIT 34.3 % (42.0-54.0); HEMOGLOBIN 11.8 g/dL (13.5-17.5); LYMPHOCYTES 35.2 % (15-50); MCH 32.6 pg (26.0-34.0); MCHC 34.4 g/dL (31.0-37.0); MCV 94.8 fL (80.0-100.0); MEAN PLATELET VOLUME 9.3 fL (7.4-10.4); MONOCYTES 11.7 % (2-11); NEUTROPHILS 48.5 % (40-80); PLATELET COUNT 227 10x3/uL (130-400); RBC 3.62 10x6/uL (4.20-6.10); RDW 12.6 % (11.5-14.5); WBC 3.9 10x3/uL (4.8-10.8)
[2018-07-27 06:00] LABS: C-REACTIVE PROTEIN 0.4 mg/dL (0.0-0.9); CREATININE - SERUM 0.7 mg/dL (0.6-1.3)
[2018-07-27 06:47] LABS: ERYTHROCYTE SEDIMENTATION RATE 12 mm/hr (0-20)
--- NOTE | 2018-07-27 07:09 | NUR ---
ROUNDING DONE WITH PATIENT WATCHING TV, DENIES NEEDS EXCEPT TO BE DISCHARGED. ON ROOM AIR. LEFT UPPER ARM SEEN WITH DOUBLE LUMEN PICC, DRESSING IS C/D/I. WILL CPOC.
[2018-07-27 07:54] VITALS: BP 118/47
--- NOTE | 2018-07-27 08:01 | NUR ---
LEFT UPPER ARM DOUBLE LUMEN PICC SEEN, BOTH PORTS FLUSHED WELL WITH 10 CC NORMAL SALINE TO BOTH.
--- NOTE | 2018-07-27 11:07 | NUR ---
WATCHING TV, FEMALE MEMBER IN ROOM. AWAITING FINAL PRICES FOR ANTIBIOTICS FOR DISCHARGE.
[2018-07-27 11:55] VITALS: BP 122/59
--- NOTE | 2018-07-27 12:36 | MORECARE ---
CASE MANAGEMENT DISCHARGE SUMMARY PATIENT: SHANNON TOMPKINS UNIT: [id number] ADM DATE: 07/16/18 AGE: 68 : 50 SEX: M ROOM/BED: D.2140 AUTHOR: VIOLETTA,DOC PHYSICIAN: REFERRING PHYSICIAN: JUANJO VIRK MD DATE OF SERVICE: 07/27/18 Discharge Plan Patient Name: SHANNON TOMPKINS Facility: [facility]:[place] : 1950 Planned Disposition: Home with Infusion Therapy Services Anticipated Discharge Date: 07/27/18 Discharge Date: Expected LOS: 11 Initial Reviewer: [id number] Initial Review Date: 07/16/2018 Generated: 07/27/18 1:36 pm Comments DCP- Discharge Planning Updated by [id number]: Babak Phan on 07/21/18 4:[address] Patient Name: SHANNON TOMPKINS Admission Status: Urgent Accout number: [id number] Admission Date: 07-16-2018 : 1950 Admission Diagnosis:CELLULITIS OF LEFT LOWER LIMB Attending: JUANJO VIRK Current LOS: 5 Anticipated DC Date: Planned Disposition: Home with Infusion Therapy Services Primary Insurance: MEDICARE A & B PLANNED EXTERNAL PROVIDER: NO PROVIDER PREFERNCE FOR HOME HEALTH OR INFUSION PHARMACY Discharge Planning Comments: CM MET WITH PT IN ROOM TO DISCUSS DISCHARGE PLANNING AND NEEDS. PT REPORTS LIVING AT HOME INDEPENDENTLY WITH SPOUSE. PT HAS HOME OXYGEN FROM [employer]. PT HAS NO OUTSIDE SERVICES ASSISTING IN THE HOME. CM DISCUSSED AVAILABILITY OF HOME HEALTH, REHAB SERVICES AND MEDICAL EQUIPMENT. PT BELIVES HE WILL NEED 6 WEEKS OF IV ANTIBOTIC INFUSION AT HOME, CM GAVE PROVIDER LISTING OF HOME HEALTH AND HOME INFUSON COMPANIES; PT HAS NO PREFENCE, CHOICE SIGNED FOR BOTH. 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 PT REPORTS HIS WILL PICK HIM UP FOR DISCHARGE HOME. IMPORTANT MESSAGE FROM MEDICARE PROVIDED AND EXPLAINED. CM TO ARRANGE HOME HEALTH AND HOME INFUSION, IF NEEDED, WITH PHYSICIAN ORDERS. CM TO CONTINUE TO FOLLOW AND ASSIST NEEDED. Director Hydrogen Storage Engineering: Babak Phan DCPIA - Discharge Planning Initial Assessment Updated by [id number]: Babak Phan on 07/21/18 5:14 pm * Is the patient Alert and Oriented? Yes * How many steps to enter\exit or inside your home? * PCP DR. VIRK * Pharmacy [facility] ([place]) * Preadmission Environment Home with Family * ADLs Independent * Equipment Oxygen * Other Equipment HOME OXYGEN ONLY [facility] - PROVIDER * List name and contact numbers for known caregivers / representatives who currently or will assist patient after discharge: CHIQUITA TOMPKINS, SPOUSE, * Verbal permission to speak to the caregivers and representatives has been obtained from the patient. Yes * Community resources currently utilized None * Please name any agencies selected above. NONE * Additional services required to return to the preadmission environment? Yes * Can the patient safely return to the preadmission environment? Yes * Has this patient been hospitalized within the prior 30 days at any hospital? No External Providers External Provider: [facility] Next Contact Date: 07/27/2018 Service Request Date: Service Type: Resolution: Reviewer: Comments: Coverage Notice Reviewer: [id number] Phan Notice Issued Date-Time: 07/21/2018 9:45 Notice Type: IM Discharge Notice Notice Delivered To: Patient Relationship to Patient: Talent Recruiter Name: Delivery Method: HAND - Hand Delivered Elida Days: Prior Verbal Notification: Recipient Understood Notice: Yes Recipient Signature: Yes Med Rec Note Co-signed by Attending: Coverage Notice Comment: Reviewer: GARCÍA Phan Notice Issued Date-Time: 07/21/2018 9:45 Notice Type: Patient Choice Letter Notice Delivered To: Patient Relationship to Patient: Talent Recruiter Name: Delivery Method: HAND - Hand Delivered Elida Days: Prior Verbal Notification: Recipient Understood Notice: Yes Recipient Signature: Yes Med Rec Note Co-signed by Attending: Coverage Notice Comment: NO CHOICE FOR HHC OR INFUSION PHARMACY PROVIDER Last DP export: 07/21/18 4:24 p Patient Name: SHANNON TOMPKINS Page [phone] Electronically Signed by [facility]AVESH [email or web address] on 07/27/18 at 1236 All edits/amendments must be made on the electronic document DICTATION DATE: 07/27/18 1236 CLIENT TECHNICAL SPECIALIST: SHARA 07/27/18 1236 RPT#: [id number] DC DATE: STATUS: [facility] [address] [place] [address] END OF REPORT
--- NOTE | 2018-07-27 12:51 | NUR ---
CALL PLACED TO DR GOODRICH TO SEE WHAT IV ANTIBIOTICS TO BE ON DISCHAGRE.
--- NOTE | 2018-07-27 13:16 | MORECARE ---
CASE MANAGEMENT DISCHARGE SUMMARY PATIENT: SHANNON TOMPKINS UNIT: [id number] ADM DATE: 07/16/18 AGE: 68 : 50 SEX: M ROOM/BED: D.2140 AUTHOR: VIOLETTA,DOC PHYSICIAN: REFERRING PHYSICIAN: JUANJO VIRK MD DATE OF SERVICE: 07/27/18 Discharge Plan Patient Name: SHANNON TOMPKINS Facility: [facility]:[place] : 1950 Planned Disposition: Home with Infusion Therapy Services Anticipated Discharge Date: 07/27/18 Discharge Date: Expected LOS: 11 Initial Reviewer: [id number] Initial Review Date: 07/16/2018 Generated: 07/27/18 2:15 pm Comments DCP- Discharge Planning Updated by [email or web address]: Babak Phan on 07/27/18 12:[address] Patient Name: SHANNON TOMPKINS Encounter No: [id number] : 1950 Primary Insurance: MEDICARE A & B Anticipated DC Date: 07-27-2018 Planned Disposition: Home with Infusion Therapy Services External Planned Provider: [facility] OR [facility] DCP follow-up note: CM RECEIVED ORDERS FOR OUTPATIENT INFUSION AND HOME HEALTH INFUSION. PT REPORTS PLAN TO RETURN HOME AND WOULD LIKE CM TO FIND OUT HIS PROJECTED COSTS OUTPATIENT AND HOME INFUSION. PT STATES HE WILL MAKE UP HIS MIND AFTER THAT. IMPORTANT MESSAGE FROM MEDICARE PROVIDED AND EXPLAINED. CM NOTIFIED DR. GOODRICH AND DR. VIRK. CM CALLED [facility], , WHO TOOK REFERRAL AND WILL NOTIFY CM OF COSTS, IF ANY. CM FAXED REFERRAL TO [facility] AT [phone]. CM CALLED AND SPOKE TO [facility], SHE REPORTS THEY HAVE ASUMPTION THAT THERE ALL COSTS WOULD BE COVERED AT 100%, PT WOULD GO TO ER FOR INFUSIONS ON WEEKENDS. CM WAITING PRICES FROM [facility] FOR HOME INFUSION SERVICES, HOME HEALTH COVERED AT 100%. OUTPATIENT INFUSION SHOULD BE COVERED AT 100%. ALONZO Gonzalez DCP- Discharge Planning Updated by [id number]: Babak Phan on 07/21/18 4:[address] Patient Name: SHANNON TOMPKINS Admission Status: Urgent Accout number: [id number] Admission Date: 07-16-2018 : 1950 Admission Diagnosis:CELLULITIS OF LEFT LOWER LIMB Attending: JUANJO VIRK Current LOS: 5 Anticipated DC Date: Planned Disposition: Home with Infusion Therapy Services Primary Insurance: MEDICARE A & B PLANNED EXTERNAL PROVIDER: NO PROVIDER PREFERNCE FOR HOME HEALTH OR INFUSION PHARMACY Discharge Planning Comments: CM MET WITH PT IN ROOM TO DISCUSS DISCHARGE PLANNING AND NEEDS. PT REPORTS LIVING AT HOME INDEPENDENTLY WITH SPOUSE. PT HAS HOME OXYGEN FROM [employer]. PT HAS NO OUTSIDE SERVICES ASSISTING IN THE HOME. CM DISCUSSED AVAILABILITY OF HOME HEALTH, REHAB SERVICES AND MEDICAL EQUIPMENT. PT BELIVES HE WILL NEED 6 WEEKS OF IV ANTIBOTIC INFUSION AT HOME, CM GAVE PROVIDER LISTING OF HOME HEALTH AND HOME INFUSON COMPANIES; PT HAS NO PREFENCE, CHOICE SIGNED FOR BOTH. 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 PT REPORTS HIS WILL PICK HIM UP FOR DISCHARGE HOME. IMPORTANT MESSAGE FROM MEDICARE PROVIDED AND EXPLAINED. CM TO ARRANGE HOME HEALTH AND HOME INFUSION, IF NEEDED, WITH PHYSICIAN ORDERS. CM TO CONTINUE TO FOLLOW AND ASSIST NEEDED. Radiology Administrator: Babak Phan DCPIA - Discharge Planning Initial Assessment Updated by [id number]: Babak Phan on 07/21/18 5:14 pm * Is the patient Alert and Oriented? Yes * How many steps to enter\exit or inside your home? * PCP DR. VIRK * Pharmacy [facility] ([place]) * Preadmission Environment Home with Family * ADLs Independent * Equipment Oxygen * Other Equipment HOME OXYGEN ONLY [employer] - PROVIDER * List name and contact numbers for known caregivers / representatives who currently or will assist patient after discharge: CHIQUITA TOMPKINS, SPOUSE, * Verbal permission to speak to the caregivers and representatives has been obtained from the patient. Yes * Community resources currently utilized None * Please name any agencies selected above. NONE * Additional services required to return to the preadmission environment? Yes * Can the patient safely return to the preadmission environment? Yes * Has this patient been hospitalized within the prior 30 days at any hospital? No Coverage Notice Reviewer: [id number] - Babak Phan Notice Issued Date-Time: 07/21/2018 9:45 Notice Type: IM Discharge Notice Notice Delivered To: Patient Relationship to Patient: Plant Guard Name: Delivery Method: HAND - Hand Delivered Elida Days: Prior Verbal Notification: Recipient Understood Notice: Yes Recipient Signature: Yes Med Rec Note Co-signed by Attending: Coverage Notice Comment: Reviewer: [id number] Phan Notice Issued Date-Time: 07/21/2018 9:45 Notice Type: Patient Choice Letter Notice Delivered To: Patient Relationship to Patient: Plant Guard Name: Delivery Method: HAND - Hand Delivered Elida Days: Prior Verbal Notification: Recipient Understood Notice: Yes Recipient Signature: Yes Med Rec Note Co-signed by Attending: Coverage Notice Comment: NO CHOICE FOR HHC OR INFUSION PHARMACY PROVIDER Reviewer: [id number] Phan Notice Issued Date-Time: 07/27/2018 9:55 Notice Type: IM Discharge Notice Notice Delivered To: Patient Relationship to Patient: Plant Guard Name: Delivery Method: HAND - Hand Delivered Elida Days: Prior Verbal Notification: Recipient Understood Notice: Yes Recipient Signature: Yes Med Rec Note Co-signed by Attending: Coverage Notice Comment: Last DP export: 07/27/18 11:36 a Patient Name: SHANNON TOMPKINS Page [phone] at 1316 All edits/amendments must be made on the electronic document DICTATION DATE: 07/27/18 1315 OPERATIONS AND INTELLIGENCE ASSISTANT: SHARA 07/27/18 1315 RPT#: [id number] DC DATE: STATUS: ADM IN [facility] [address] [place] [address] END OF REPORT
--- NOTE | 2018-07-27 15:17 | NUR ---
DRESSING CHANGE TO LEFT FOOT 3RD AND 4TH TOE DONE ORDERED. TOLERATED WELL.
--- NOTE | 2018-07-27 16:44 | MORECARE ---
CASE MANAGEMENT DISCHARGE SUMMARY PATIENT: SHANNON TOMPKINS UNIT: [id number] ADM DATE: 07/16/18 AGE: 68 : 50 SEX: M ROOM/BED: D.2140 AUTHOR: VIOLETTA,DOC PHYSICIAN: REFERRING PHYSICIAN: JUANJO VIRK MD DATE OF SERVICE: 07/27/18 Discharge Plan Patient Name: SHANNON TOMPKINS Facility: [facility]:[place] : 1950 Planned Disposition: Outpatient clinics\services (Programs) Anticipated Discharge Date: 07/27/18 Discharge Date: Expected LOS: 11 Initial Reviewer: [id number] Initial Review Date: 07/16/2018 Generated: 07/27/18 5:44 pm Comments DCP- Discharge Planning Updated by [email or web address]: Babak Phan on 07/27/18 12:[address] Patient Name: SHANNON TOMPKINS Encounter No: [id number] : 1950 Primary Insurance: MEDICARE A & B Anticipated DC Date: 07-27-2018 Planned Disposition: Home with Infusion Therapy Services External Planned Provider: [facility] OR [facility] DCP follow-up note: CM RECEIVED ORDERS FOR OUTPATIENT INFUSION AND HOME HEALTH INFUSION. PT REPORTS PLAN TO RETURN HOME AND WOULD LIKE CM TO FIND OUT HIS PROJECTED COSTS OUTPATIENT AND HOME INFUSION. PT STATES HE WILL MAKE UP HIS MIND AFTER THAT. IMPORTANT MESSAGE FROM MEDICARE PROVIDED AND EXPLAINED. CM NOTIFIED DR. GOODRICH AND DR. VIRK. CM CALLED [facility], , WHO TOOK REFERRAL AND WILL NOTIFY CM OF COSTS, IF ANY. CM FAXED REFERRAL TO [facility] AT [phone]. CM CALLED AND SPOKE TO [facility] OUT[facility], SHE REPORTS THEY HAVE ASUMPTION THAT THERE ALL COSTS WOULD BE COVERED AT 100%, PT WOULD GO TO ER FOR INFUSIONS ON WEEKENDS. CM WAITING PRICES FROM [facility] FOR HOME INFUSION SERVICES, HOME HEALTH COVERED AT 100%. OUTPATIENT INFUSION SHOULD BE COVERED AT 100%. Babak Phan CASE MANAGEMENT DCP- Discharge Planning Updated by [email or web address]: Babak Phan on 07/21/18 4:[address] Patient Name: SHANNON TOMPKINS Admission Status: Urgent Accout number: [id number] Admission Date: 07-16-2018 : 1950 Admission Diagnosis:CELLULITIS OF LEFT LOWER LIMB Attending: JUANJO VIRK Current LOS: 5 Anticipated DC Date: Planned Disposition: Home with Infusion Therapy Services Primary Insurance: MEDICARE A & B PLANNED EXTERNAL PROVIDER: NO PROVIDER PREFERNCE FOR HOME HEALTH OR INFUSION PHARMACY Discharge Planning Comments: CM MET WITH PT IN ROOM TO DISCUSS DISCHARGE PLANNING AND NEEDS. PT REPORTS LIVING AT HOME INDEPENDENTLY WITH SPOUSE. PT HAS HOME OXYGEN FROM [employer]. PT HAS NO OUTSIDE SERVICES ASSISTING IN THE HOME. CM DISCUSSED AVAILABILITY OF HOME HEALTH, REHAB SERVICES AND MEDICAL EQUIPMENT. PT BELIVES HE WILL NEED 6 WEEKS OF IV ANTIBOTIC INFUSION AT HOME, CM GAVE PROVIDER LISTING OF HOME HEALTH AND HOME INFUSON COMPANIES; PT HAS NO PREFENCE, CHOICE SIGNED FOR BOTH. 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 PT REPORTS HIS WILL PICK HIM UP FOR DISCHARGE HOME. IMPORTANT MESSAGE FROM MEDICARE PROVIDED AND EXPLAINED. CM TO ARRANGE HOME HEALTH AND HOME INFUSION, IF NEEDED, WITH PHYSICIAN ORDERS. CM TO CONTINUE TO FOLLOW AND ASSIST NEEDED. Fender Mechanic Apprentice: Babak Phan DCPIA - Discharge Planning Initial Assessment Updated by [email or web address]: Babak Phan on 07/21/18 5:14 pm * Is the patient Alert and Oriented? Yes * How many steps to enter\exit or inside your home? * PCP DR. VIRK * Pharmacy [facility] ([place]) * Preadmission Environment Home with Family * ADLs Independent * Equipment Oxygen * Other Equipment HOME OXYGEN ONLY [employer] - PROVIDER * List name and contact numbers for known caregivers / representatives who currently or will assist patient after discharge: CHIQUITA TOMPKINS, SPOUSE, * Verbal permission to speak to the caregivers and representatives has been obtained from the patient. Yes * Community resources currently utilized None * Please name any agencies selected above. NONE * Additional services required to return to the preadmission environment? Yes * Can the patient safely return to the preadmission environment? Yes * Has this patient been hospitalized within the prior 30 days at any hospital? No Coverage Notice Reviewer: [id number] - Babak Phan Notice Issued Date-Time: 07/21/2018 9:45 Notice Type: IM Discharge Notice Notice Delivered To: Patient Relationship to Patient: Mailroom Coordinator Name: Delivery Method: HAND - Hand Delivered Elida Days: Prior Verbal Notification: Recipient Understood Notice: Yes Recipient Signature: Yes Med Rec Note Co-signed by Attending: Coverage Notice Comment: Reviewer: GARCÍA Phan Notice Issued Date-Time: 07/21/2018 9:45 Notice Type: Patient Choice Letter Notice Delivered To: Patient Relationship to Patient: Mailroom Coordinator Name: Delivery Method: HAND - Hand Delivered Elida Days: Prior Verbal Notification: Recipient Understood Notice: Yes Recipient Signature: Yes Med Rec Note Co-signed by Attending: Coverage Notice Comment: NO CHOICE FOR HHC OR INFUSION PHARMACY PROVIDER Reviewer: [id number] Phan Notice Issued Date-Time: 07/27/2018 9:55 Notice Type: IM Discharge Notice Notice Delivered To: Patient Relationship to Patient: Mailroom Coordinator Name: Delivery Method: HAND - Hand Delivered Elida Days: Prior Verbal Notification: Recipient Understood Notice: Yes Recipient Signature: Yes Med Rec Note Co-signed by Attending: Coverage Notice Comment: Last DP export: 07/27/18 12:15 p Patient Name: SHANNON TOMPKINS Page [id number] at 1644 All edits/amendments must be made on the electronic document DICTATION DATE: 07/27/181642 REPORTING CONSULTANT: SHARA 07/27/181642 RPT#: [id number] DC DATE: STATUS: ADM IN [facility] [address] [place] [address] END OF REPORT
--- NOTE | 2018-07-27 16:51 | MORECARE ---
CASE MANAGEMENT DISCHARGE SUMMARY PATIENT: SHANNON TOMPKINS UNIT: [id number] ADM DATE: 07/16/18 AGE: 68 : 50 SEX: M ROOM/BED: D.2140 AUTHOR: VIOLETTA,DOC PHYSICIAN: REFERRING PHYSICIAN: JUANJO VIRK MD DATE OF SERVICE: 07/27/18 Discharge Plan Patient Name: SHANNON TOMPKINS [facility] [facility] 1950 Planned Disposition: Outpatient clinics\services (Programs) Anticipated Discharge Date: 07/27/18 Discharge Date: Expected LOS: 11 Initial Reviewer: [id number] Initial Review Date: 07/16/2018 Generated: 07/27/18 5:50 pm Comments DCP- Discharge Planning Updated by [email or web address]: Babak Phan on 07/27/18 3:[address] Patient Name: SHANNON TOMPKINS Encounter No: [id number] : 1950 Primary Insurance: MEDICARE A & B Anticipated DC Date: 07-27-2018 Planned Disposition: Outpatient clinics\services (Programs) External Planned Provider: [facility] OUTPATIENT DEPARTMENT DCP follow-up note: CM CALLED AND SPOKE TO [facility] OF OUTPATIENT DEPARTMENT WHO INFORMED CM THAT PT HAS MEDICARE AND [place] [employer] CROSS AND IT IS ASSUMED THAT PT WILL HAVE NO COPAY FOR OUTPATIENT INFUSION SERVICES. CM SPOKE TO [facility] WHO INFORMED CM THAT PT'S COSTS WOULD BE $1700 FOR INFUSION SUPPLIES AND SERVICES, PT'S HOME HEALTH HAS NO COPAY. CM SPOKE TO PT IN ROOM, PROVIDED OPTIONS. PT WANTS OUTPATIENT INFUSION AT [facility]. PT REPORTS HAVING FAMILY TO TRANSPORT HIM TO HOSPITAL DAILY FOR ALL SERVICES. PT REPORTS PLAN TO RETURN TO WORK AT THE HOME ALSO. PT'S SPOUSE TO PERSONAL DEVELOPMENT MENTOR FOR DISCHARGE HOME TODAY. CM CALLED OUTPATIENT, [phone], SCHEDULED INFUSION TO BEGIN TOMORROW, 07-28-18 AT 1400 HOURS. CM WAS ADVISED THAT LAB WORK COULD ALSO BE DONE OUTPATIENT AND THAT PT WILL GO TO EMERGENCY ROOM ON WEEKENDS FOR INFUSION SERVICES. OUTPATIENT HAS ACCESS TO [facility] AND WILL PULL ORDER FROM THERE. PT AND VETERINARY PHYSIOLOGIST NURSE NOTIFIED. NO FURHTER DISCHARGE NEEDS IDENTIFIED. ALONZO Gonzalez DCP- Discharge Planning Updated by [id number]: Babak Phan on 07/27/18 12:[address] Patient Name: SHANNON TOMPKINS Encounter No: [id number] : 1950 Primary Insurance: MEDICARE A & B Anticipated DC Date: 07-27-2018 Planned Disposition: Home with Infusion Therapy Services External Planned Provider: [facility] OR [facility] SERVICES DCP follow-up note: CM RECEIVED ORDERS FOR OUTPATIENT INFUSION AND HOME HEALTH INFUSION. PT REPORTS PLAN TO RETURN HOME AND WOULD LIKE CM TO FIND OUT HIS PROJECTED COSTS OUTPATIENT AND HOME INFUSION. PT STATES HE WILL MAKE UP HIS MIND AFTER THAT. IMPORTANT MESSAGE FROM MEDICARE PROVIDED AND EXPLAINED. CM NOTIFIED DR. GOODRICH AND DR. VIRK. CM CALLED [facility] OF [facility], , WHO TOOK REFERRAL AND WILL NOTIFY CM OF COSTS, IF ANY. CM FAXED REFERRAL TO [facility] AT [phone]. CM CALLED AND SPOKE TO [facility], SHE REPORTS THEY HAVE ASUMPTION THAT THERE ALL COSTS WOULD BE COVERED AT 100%, PT WOULD GO TO ER FOR INFUSIONS ON WEEKENDS. CM WAITING PRICES FROM [facility] FOR HOME INFUSION SERVICES, HOME HEALTH COVERED AT 100%. OUTPATIENT INFUSION SHOULD BE COVERED AT 100%. Babak Phan, CASE MANAGEMENT DCP- Discharge Planning Updated by [id number]: Babak Phan on 07/21/18 4:[address] Patient Name: SHANNON TOMPKINS Admission Status: Urgent Accout number: [id number] Admission Date: 07-16-2018 : 1950 Admission Diagnosis:CELLULITIS OF LEFT LOWER LIMB Attending: JUANJO VIRK Current LOS: 5 Anticipated DC Date: Planned Disposition: Home with Infusion Therapy Services Primary Insurance: MEDICARE A & B PLANNED EXTERNAL PROVIDER: NO PROVIDER PREFERNCE FOR HOME HEALTH OR INFUSION PHARMACY Discharge Planning Comments: CM MET WITH PT IN ROOM TO DISCUSS DISCHARGE PLANNING AND NEEDS. PT REPORTS LIVING AT HOME INDEPENDENTLY WITH SPOUSE. PT HAS HOME OXYGEN FROM [employer]. PT HAS NO OUTSIDE SERVICES ASSISTING IN THE HOME. CM DISCUSSED AVAILABILITY OF HOME HEALTH, REHAB SERVICES AND MEDICAL EQUIPMENT. PT BELIVES HE WILL NEED 6 WEEKS OF IV ANTIBOTIC INFUSION AT HOME, CM GAVE PROVIDER LISTING OF HOME HEALTH AND HOME INFUSON COMPANIES; PT HAS NO PREFENCE, CHOICE SIGNED FOR BOTH. 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 PT REPORTS HIS WILL PICK HIM UP FOR DISCHARGE HOME. IMPORTANT MESSAGE FROM MEDICARE PROVIDED AND EXPLAINED. CM TO ARRANGE HOME HEALTH AND HOME INFUSION, IF NEEDED, WITH PHYSICIAN ORDERS. CM TO CONTINUE TO FOLLOW AND ASSIST NEEDED. Ultrasound Specialist: Babak Phan DCPIA - Discharge Planning Initial Assessment Updated by GARCÍA: Babak Phan on 07/21/18 5:14 pm * Is the patient Alert and Oriented? Yes * How many steps to enter\exit or inside your home? * PCP DR. VIRK * Pharmacy [facility] ([place]) * Preadmission Environment Home with Family * ADLs Independent * Equipment Oxygen * Other Equipment HOME OXYGEN ONLY [employer] - PROVIDER * List name and contact numbers for known caregivers / representatives who currently or will assist patient after discharge: CHIQUITA TOMPKINS, SPOUSE, * Verbal permission to speak to the caregivers and representatives has been obtained from the patient. Yes * Community resources currently utilized None * Please name any agencies selected above. NONE * Additional services required to return to the preadmission environment? Yes * Can the patient safely return to the preadmission environment? Yes * Has this patient been hospitalized within the prior 30 days at any hospital? No Coverage Notice Reviewer: [id number] Phan Notice Issued Date-Time: 07/21/2018 9:45 Notice Type: IM Discharge Notice Notice Delivered To: Patient Relationship to Patient: [employer]ter [employer] Name: Delivery Method: HAND - Hand Delivered Elida Days: Prior Verbal Notification: Recipient Understood Notice: Yes Recipient Signature: Yes Med Rec Note Co-signed by Attending: Coverage Notice Comment: Reviewer: GARCÍA Phan Notice Issued Date-Time: 07/21/2018 9:45 Notice Type: Patient Choice Letter Notice Delivered To: Patient Relationship to Patient: [employer] Name: Delivery Method: HAND - Hand Delivered Elida Days: Prior Verbal Notification: Recipient Understood Notice: Yes Recipient Signature: Yes Med Rec Note Co-signed by Attending: Coverage Notice Comment: NO CHOICE FOR HHC OR INFUSION PHARMACY PROVIDER Reviewer: GARCÍA Phan Notice Issued Date-Time: 07/27/2018 9:55 Notice Type: IM Discharge Notice Notice Delivered To: Patient Relationship to Patient: [employer] Name: Delivery Method: HAND - Hand Delivered Elida Days: Prior Verbal Notification: Recipient Understood Notice: Yes Recipient Signature: Yes Med Rec Note Co-signed by Attending: Coverage Notice Comment: Last DP export: 07/27/18 3:44 p Patient Name: SHANNON TOMPKINS Page 13707 at 1651 All edits/amendments must be made on the electronic document DICTATION DATE: 07/27/181649 PROJECTOR OPERATOR: SHARA 07/27/181649 RPT#: [id number] DC DATE: STATUS: ADM IN [facility] [address] [place] [address] END OF REPORT
--- NOTE | 2018-07-27 17:06 | NUR ---
VERBAL AND WRITTEN DISCHARGE INSTRUCTIONS GIVEN TO PATIENT AND . AMBULATED TO ER FOR DISCHARGE. LEFT UPPER ARM PICC LINE DRESSING INTACT ALONG WITH ORANGE SWAB CAPS.
[2018-07-29 18:07] LABS: AEROBE ID Final report (())
== END 2018-07-27 17:09 | disposition home or self-care (01) | DRG 988 ==
LOC: D.M3 14:45 → D.M2 14:45
PROVIDERS: Orthopaedic Surgery; Student in an Organized Health Care Education/Training Program; ADMIT Family Medicine; ATTEND Family Medicine
PROC: 0QBR0ZX Excision of Left Toe Phalanx, Open Approach, Diagnostic (ICD-10-PCS; principal; 2018-07-20 17:00)
PROC: 05HC33Z Insertion of Infusion Device into Left Basilic Vein, Percutaneous Approach (ICD-10-PCS; 2018-07-21)
PROC: B54NZZA Ultrasonography of Left Upper Extremity Veins, Guidance (ICD-10-PCS; 2018-07-21)
DX: E11.69 Type 2 diabetes mellitus with other specified complication (principal); M86.172 Other acute osteomyelitis, left ankle and foot; L03.116 Cellulitis of left lower limb; E11.621 Type 2 diabetes mellitus with foot ulcer; E11.51 Type 2 diabetes mellitus with diabetic peripheral angiopathy without gangrene; I25.10 Atherosclerotic heart disease of native coronary artery without angina pectoris; I10 Essential (primary) hypertension; Z72.0 Tobacco use

== ENCOUNTER 2018-07-28 13:56 | Outpatient (CLI) | payer MEDICARE, BC | END 2018-07-28 16:05 | disposition home or self-care (01) | LOC: D.OPS 13:56 | DX: M86.9 Osteomyelitis, unspecified (principal) ==

== ENCOUNTER 2018-07-29 13:54 | Outpatient (CLI) | payer MEDICARE, BC | END 2018-07-29 15:32 | disposition home or self-care (01) | LOC: D.OPS 13:54 | DX: M86.9 Osteomyelitis, unspecified (principal) ==

== ENCOUNTER → 2018-07-30 13:45 | Outpatient (CLI) | payer MEDICARE, BC ==
[~2018-07-30 13:45] MED LIST changes: +BASAGLAR K100 UNIT/1 SC; +GLUCOPHAGE850 MG PO; +LEVOFLOXACIN500 MG PO
[2018-07-30 14:16] VITALS: BMI 27.0
== END | disposition home or self-care (01) ==
LOC: D.OPS 13:45
PROVIDERS: ATTEND Student in an Organized Health Care Education/Training Program
DX: M86.9 Osteomyelitis, unspecified (principal)

== ENCOUNTER 2018-07-31 13:51 | Outpatient (CLI) | payer MEDICARE, BC | END 2018-07-31 15:23 | disposition home or self-care (01) | LOC: D.OPS 13:51 → D.MS 14:01 | DX: M86.9 Osteomyelitis, unspecified (principal) ==

== ENCOUNTER 2018-08-01 13:41 | Outpatient (CLI) | payer MEDICARE, BC | END 2018-08-01 17:03 | disposition home or self-care (01) | LOC: D.OPS 13:41 → D.MS 13:52 | DX: M86.9 Osteomyelitis, unspecified (principal) ==

== ENCOUNTER → 2018-08-02 13:52 | Outpatient (CLI) | payer MEDICARE, BC ==
[~2018-08-02] VITALS: Ht 177.8 cm; Wt 85.5 kg
[~2018-08-02 13:52] MED LIST changes: -BASAGLAR K100 UNIT/1 SC; -GLUCOPHAGE850 MG PO; -LEVOFLOXACIN500 MG PO
[2018-08-02 15:17] LABS: BASOPHILS 0.4 % (0-2); EOSINOPHILS 3.1 % (0-7); HEMATOCRIT 32.5 % (42.0-54.0); HEMOGLOBIN 10.9 g/dL (13.5-17.5); IMMATURE GRANULOCYTES 0.2 % (0-5); MCH 32.4 pg (26.0-34.0); MCHC 33.5 g/dL (31.0-37.0); MCV 96.7 fL (80.0-100.0); MEAN PLATELET VOLUME 9.2 fL (7.4-10.4); MONOCYTES 7.3 % (2-11); PLATELET COUNT 238 10x3/uL (130-400); RBC 3.36 10x6/uL (4.20-6.10); RDW 13.2 % (11.5-14.5); WBC 4.5 10x3/uL (4.8-10.8)
[2018-08-02 15:24] VITALS: BP 121/44; Ht 177.8 cm; Wt 85.5 kg
[2018-08-02 16:11] LABS: CREATININE - SERUM 0.9 mg/dL (0.6-1.3)
[2018-08-02 17:15] LABS: ERYTHROCYTE SEDIMENTATION RATE 10 mm/hr (0-20)
== END | disposition home or self-care (01) ==
LOC: D.OPS 13:52
PROVIDERS: ATTEND Student in an Organized Health Care Education/Training Program
DX: M86.9 Osteomyelitis, unspecified (principal)

== ENCOUNTER 2018-08-03 13:56 | Outpatient (CLI) | payer MEDICARE, BC ==
[~2018-08-03] VITALS: Ht 177.8 cm; Wt 85.5 kg
[2018-08-03 14:19] VITALS: Ht 177.8 cm; Wt 85.5 kg
--- NOTE | 2018-08-03 15:53 | NUR ---
1540 PICC LINE DRESSING CHANGED AND FLUSHED, CAPS CHANGED AND STERILE TECK APPLIED
== END 2018-08-03 15:50 | disposition home or self-care (01) ==
LOC: D.OPS 13:56
PROVIDERS: ATTEND Student in an Organized Health Care Education/Training Program
DX: M86.9 Osteomyelitis, unspecified (principal)

== ENCOUNTER 2018-08-04 13:56 | Outpatient (CLI) | payer MEDICARE, BC ==
[~2018-08-04] VITALS: Ht 177.8 cm; Wt 85.5 kg
[2018-08-04 14:09] VITALS: BP 131/68; Ht 177.8 cm; Wt 85.5 kg
== END 2018-08-04 15:13 | disposition home or self-care (01) ==
LOC: D.OPS 13:56
PROVIDERS: ATTEND Student in an Organized Health Care Education/Training Program
DX: M86.9 Osteomyelitis, unspecified (principal)

== ENCOUNTER 2018-08-05 13:55 | Outpatient (CLI) | payer MEDICARE, BC ==
[~2018-08-05] VITALS: Ht 177.8 cm; Wt 85.5 kg
[2018-08-05 14:27] VITALS: Ht 177.8 cm; Wt 85.5 kg
--- NOTE | 2018-08-05 15:06 | NUR ---
ANTIBIOTIC TREATMENT COMPLETED EXPECTED.
== END 2018-08-05 15:07 | disposition home or self-care (01) ==
LOC: D.OPS 13:55
PROVIDERS: ATTEND Student in an Organized Health Care Education/Training Program
DX: M86.9 Osteomyelitis, unspecified (principal)

== ENCOUNTER 2018-08-06 13:42 | Outpatient (CLI) | payer MEDICARE, BC ==
[2018-08-06 14:13] VITALS: BP 116/57; BMI 27.0
== END 2018-08-06 15:05 | disposition home or self-care (01) ==
LOC: D.OPS 13:42
PROVIDERS: ATTEND Student in an Organized Health Care Education/Training Program
DX: M86.9 Osteomyelitis, unspecified (principal)

== ENCOUNTER 2018-08-07 13:38 | Outpatient (CLI) | payer MEDICARE, BC ==
[2018-08-06 14:13] VITALS: BMI 27.0
== END 2018-08-07 18:21 | disposition home or self-care (01) ==
LOC: D.OPS 13:38 → D.MS 13:59 → D.OPS 18:21
PROVIDERS: ATTEND Student in an Organized Health Care Education/Training Program
DX: M86.9 Osteomyelitis, unspecified (principal)

== ENCOUNTER 2018-08-08 13:55 | Outpatient (CLI) | payer MEDICARE, BC ==
[2018-08-08 14:20] VITALS: BP 164/45
--- NOTE | 2018-08-08 15:27 | NUR ---
INFUSION COMPLETE. MIDLINE HEP-LOCKED. DISCHARGE PAPERWORK SIGNED, ALL QUESTIONS ANSWERED. PT AMBULATED OUT.
--- NOTE | 2018-08-10 09:48 | MORECARE ---
CASE MANAGEMENT DISCHARGE SUMMARY PATIENT: SHANNON TOMPKINS UNIT: [id number] ADM DATE: 08/08/18 AGE: 68 : 50 SEX: M ROOM/BED: D.2231 AUTHOR: BHAVESH SHIPLEY PHYSICIAN: REFERRING PHYSICIAN: Flex GOODRICH DATE OF SERVICE: 08/10/18 Discharge Plan Patient Name: SHANNON TOMPKINS [facility] [facility] 1950 Planned Disposition: Home Anticipated Discharge Date: Discharge Date: 08/08/2018 Expected LOS: 0 Initial Reviewer: [email or web address] Initial Review Date: 08/10/2018 Generated: 08/10/18 10:47 am Patient Name: SHANNON TOMPKINS Page 07298 at 0948 All edits/amendments must be made on the electronic document DICTATION DATE: 08/10/18946 EQUALIZER OPERATOR: SHARA 08/10/18946 RPT#: [id number] DC DATE:08/08/18 STATUS: DIS IN [facility] [address] [place] [address] END OF REPORT
== END 2018-08-08 15:27 | disposition home or self-care (01) ==
LOC: OBSVTIME → D.OPS 13:55 → D.MS 13:59 → OBSVTIME 13:59 → D.MS 13:59 → D.OPS 15:27
PROVIDERS: ATTEND Student in an Organized Health Care Education/Training Program
DX: M86.9 Osteomyelitis, unspecified (principal)

== ENCOUNTER 2018-08-09 13:43 | Outpatient (CLI) | payer MEDICARE, BC ==
[2018-08-09 14:52] VITALS: BP 129/55; BMI 27.0
--- NOTE | 2018-08-09 15:15 | NUR ---
PICC LINE DRESSING CHANGED, AND LAB OBTAINED.
[2018-08-09 15:33] LABS: BASOPHILS 0.5 % (0-2); EOSINOPHILS 3.4 % (0-7); HEMATOCRIT 33.9 % (42.0-54.0); HEMOGLOBIN 11.3 g/dL (13.5-17.5); IMMATURE GRANULOCYTES 0.2 % (0-5); LYMPHOCYTES 24.9 % (15-50); MCH 32.4 pg (26.0-34.0); MCHC 33.3 g/dL (31.0-37.0); MCV 97.1 fL (80.0-100.0); MEAN PLATELET VOLUME 9.7 fL (7.4-10.4); MONOCYTES 9.8 % (2-11); NEUTROPHILS 61.2 % (40-80); PLATELET COUNT 205 10x3/uL (130-400); RBC 3.49 10x6/uL (4.20-6.10); RDW 13.3 % (11.5-14.5); WBC 4.4 10x3/uL (4.8-10.8)
[2018-08-09 16:35] LABS: CREATININE - SERUM 0.9 mg/dL (0.6-1.3)
[2018-08-09 16:45] LABS: ERYTHROCYTE SEDIMENTATION RATE 9 mm/hr (0-20)
== END 2018-08-09 15:16 | disposition home or self-care (01) ==
LOC: D.OPS 13:43
PROVIDERS: ATTEND Student in an Organized Health Care Education/Training Program
DX: M86.9 Osteomyelitis, unspecified (principal)

== ENCOUNTER 2018-08-10 14:01 | Outpatient (CLI) | payer MEDICARE, BC ==
[~2018-08-10] VITALS: Ht 177.8 cm; Wt 85.5 kg
[2018-08-10 14:14] VITALS: BP 138/65; Ht 177.8 cm; Wt 85.5 kg
--- NOTE | 2018-08-10 18:07 | NUR ---
1630.IV FLUSHED WITH SALINE AND HEPARIN 100UNITS 1645 PT DICSHARGED HOME
== END 2018-08-10 15:45 | disposition home or self-care (01) ==
LOC: D.OPS 14:01
PROVIDERS: ATTEND Student in an Organized Health Care Education/Training Program
DX: M86.9 Osteomyelitis, unspecified (principal)

== ENCOUNTER 2018-08-11 13:36 | Outpatient (CLI) | payer MEDICARE, BC ==
[~2018-08-11] VITALS: Ht 177.8 cm; Wt 85.5 kg
[2018-08-11 14:24] VITALS: BP 125/64; Ht 177.8 cm; Wt 85.5 kg
== END 2018-08-11 15:05 | disposition home or self-care (01) ==
LOC: D.OPS 13:36
PROVIDERS: ATTEND Student in an Organized Health Care Education/Training Program
DX: M86.9 Osteomyelitis, unspecified (principal)

== ENCOUNTER → 2018-08-12 13:45 | Outpatient (CLI) | payer MEDICARE, BC ==
[~2018-08-12] VITALS: Ht 177.8 cm; Wt 85.5 kg
[~2018-08-12 13:45] MED LIST changes: +LEVOFLOXACIN500 MG PO
[2018-08-12 14:06] VITALS: BP 110/57; Ht 177.8 cm; Wt 85.5 kg
== END | disposition home or self-care (01) ==
LOC: D.OPS 13:45
PROVIDERS: ATTEND Student in an Organized Health Care Education/Training Program
DX: M86.9 Osteomyelitis, unspecified (principal)

== ENCOUNTER → 2018-08-13 14:00 | Outpatient (CLI) | payer MEDICARE, BC ==
[~2018-08-13] VITALS: Ht 177.8 cm; Wt 84.1 kg
[2018-08-13 14:20] VITALS: BP 123/57; Ht 177.8 cm; Wt 84.1 kg
== END | disposition home or self-care (01) ==
LOC: D.OPS 14:00
PROVIDERS: ATTEND Student in an Organized Health Care Education/Training Program
DX: M86.9 Osteomyelitis, unspecified (principal)

== ENCOUNTER 2018-08-14 13:47 | Outpatient (CLI) | payer MEDICARE, BC ==
[2018-08-13 14:20] VITALS: BMI 26.6
[~2018-08-14 13:47] MED LIST changes: -LEVOFLOXACIN500 MG PO
--- NOTE | 2018-08-14 15:35 | NUR ---
ADMINISTERED PT ABX, PT TOLERATED WELL, FLUSHED WITH HEPARIN AND PT DC
== END 2018-08-14 16:03 | disposition home or self-care (01) ==
LOC: D.OPS 13:47 → D.MS 13:48 → D.OPS 16:03
PROVIDERS: ATTEND Student in an Organized Health Care Education/Training Program
DX: M86.9 Osteomyelitis, unspecified (principal)

== ENCOUNTER 2018-08-15 13:46 | Outpatient (CLI) | payer MEDICARE, BC ==
[2018-08-13 14:20] VITALS: BMI 26.6
[2018-08-16] MEDS ORDERED: LEVOFLOXACIN500 MG PO (14:01)
== END 2018-08-15 15:15 | disposition home or self-care (01) ==
LOC: D.OPS 13:46 → D.MS 13:49 → D.OPS 15:15
PROVIDERS: ATTEND Student in an Organized Health Care Education/Training Program
DX: M86.9 Osteomyelitis, unspecified (principal)

== ENCOUNTER 2018-08-16 09:42 | Outpatient (CLI) | payer MEDICARE, BC ==
[~2018-08-16] VITALS: Ht 177.8 cm; Wt 85.5 kg
[2018-08-16] MEDS ORDERED: LEVOFLOXACIN500 MG PO (14:01)
[2018-08-16 14:03] VITALS: BP 115/87; Ht 177.8 cm; Wt 85.5 kg
[2018-08-16 14:54] LABS: BASOPHILS 0.6 % (0-2); EOSINOPHILS 6.5 % (0-7); HEMATOCRIT 34.8 % (42.0-54.0); HEMOGLOBIN 11.7 g/dL (13.5-17.5); IMMATURE GRANULOCYTES 0.2 % (0-5); LYMPHOCYTES 23.7 % (15-50); MCH 32.5 pg (26.0-34.0); MCHC 33.6 g/dL (31.0-37.0); MCV 96.7 fL (80.0-100.0); MEAN PLATELET VOLUME 9.5 fL (7.4-10.4); MONOCYTES 8.8 % (2-11); NEUTROPHILS 60.2 % (40-80); PLATELET COUNT 202 10x3/uL (130-400); RDW 13.4 % (11.5-14.5); WBC 4.8 10x3/uL (4.8-10.8)
--- NOTE | 2018-08-16 15:17 | NUR ---
1513 INFUSION COMPLETED LINE FLUSHED WITH NS AND HEPARIN FLUSH ORDERED. RECAPPED AND RELEASED AMB.
[2018-08-16 15:43] LABS: CREATININE - SERUM 0.9 mg/dL (0.6-1.3)
[2018-08-16 16:18] LABS: ERYTHROCYTE SEDIMENTATION RATE 24 mm/hr (0-20)
== END 2018-08-16 15:15 | disposition home or self-care (01) ==
LOC: D.OPS 09:42
PROVIDERS: ATTEND Student in an Organized Health Care Education/Training Program
DX: M86.9 Osteomyelitis, unspecified (principal)

== ENCOUNTER 2018-08-17 13:33 | Outpatient (CLI) | payer MEDICARE, BC ==
[~2018-08-17] VITALS: Ht 177.8 cm; Wt 85.5 kg
[~2018-08-17 13:33] MED LIST changes: +LEVOFLOXACIN500 MG PO
[2018-08-17 13:46] VITALS: Ht 177.8 cm; Wt 85.5 kg
== END 2018-08-17 14:57 | disposition home or self-care (01) ==
LOC: D.OPS 13:33
PROVIDERS: ATTEND Student in an Organized Health Care Education/Training Program
DX: M86.9 Osteomyelitis, unspecified (principal)

== ENCOUNTER 2018-08-18 13:42 | Outpatient (CLI) | payer MEDICARE, BC ==
[2018-08-18 14:33] VITALS: BMI 26.6
== END 2018-08-18 15:20 | disposition home or self-care (01) ==
LOC: D.OPS 13:42
PROVIDERS: ATTEND Student in an Organized Health Care Education/Training Program
DX: M86.9 Osteomyelitis, unspecified (principal)

== ENCOUNTER 2018-08-19 13:41 | Outpatient (CLI) | payer MEDICARE, BC ==
[~2018-08-19] VITALS: Ht 177.8 cm; Wt 79.5 kg
[2018-08-19 14:08] VITALS: BP 103/57; Ht 177.8 cm; Wt 79.5 kg
--- NOTE | 2018-08-19 16:44 | NUR ---
CUBICIN INFUSION GIVEN, PT TOLERATED WELL.
== END 2018-08-19 15:00 | disposition home or self-care (01) ==
LOC: D.OPS 13:41
PROVIDERS: ATTEND Student in an Organized Health Care Education/Training Program
DX: M86.9 Osteomyelitis, unspecified (principal)

== ENCOUNTER → 2018-08-20 13:35 | Outpatient (CLI) | payer MEDICARE, BC ==
[~2018-08-20] VITALS: Ht 177.8 cm; Wt 85.5 kg
[2018-08-20 13:54] VITALS: BP 110/60; Ht 177.8 cm; Wt 85.5 kg
== END | disposition home or self-care (01) ==
LOC: D.OPS 13:35
PROVIDERS: ATTEND Student in an Organized Health Care Education/Training Program
DX: M86.9 Osteomyelitis, unspecified (principal)

== ENCOUNTER 2018-08-21 13:31 | Outpatient (CLI) | payer MEDICARE, BC ==
[2018-08-20 13:54] VITALS: BMI 27.0
[2018-08-21 14:36] VITALS: BP 141/51
== END 2018-08-21 16:10 | disposition home or self-care (01) ==
LOC: D.MS 13:31 → D.OPS 13:31
PROVIDERS: ATTEND Student in an Organized Health Care Education/Training Program
DX: M86.9 Osteomyelitis, unspecified (principal)

== ENCOUNTER 2018-08-22 13:24 | Outpatient (CLI) | payer MEDICARE, BC ==
[2018-08-20 13:54] VITALS: BMI 27.0
== END 2018-08-22 14:40 | disposition home or self-care (01) ==
LOC: D.OPS 13:24 → D.MS 13:25 → D.OPS 14:40
PROVIDERS: ATTEND Student in an Organized Health Care Education/Training Program
DX: M86.9 Osteomyelitis, unspecified (principal)

== ENCOUNTER 2018-08-23 13:48 | Outpatient (CLI) | payer MEDICARE, BC ==
[~2018-08-23] VITALS: Ht 177.8 cm; Wt 84.1 kg
[2018-08-23 14:35] LABS: BASOPHILS 0.5 % (0-2); EOSINOPHILS 3.7 % (0-7); HEMATOCRIT 33.7 % (42.0-54.0); HEMOGLOBIN 11.3 g/dL (13.5-17.5); IMMATURE GRANULOCYTES 0.2 % (0-5); LYMPHOCYTES 22.1 % (15-50); MCH 32.2 pg (26.0-34.0); MCHC 33.5 g/dL (31.0-37.0); MEAN PLATELET VOLUME 9.4 fL (7.4-10.4); MONOCYTES 7.7 % (2-11); NEUTROPHILS 65.8 % (40-80); PLATELET COUNT 214 10x3/uL (130-400); RBC 3.51 10x6/uL (4.20-6.10); RDW 13.5 % (11.5-14.5); WBC 5.7 10x3/uL (4.8-10.8)
[2018-08-23 14:40] VITALS: Ht 177.8 cm; Wt 84.1 kg
--- NOTE | 2018-08-23 14:44 | NUR ---
1410 BLOOD DRAWN FROM PICC LINE AFTER WASTING 10CC FROM PURPLE PORT FOR CBC,BUN/CR,ESR,CRP AND CK. AFTER BLOOD DRAW, LINE WAS FLUSHED WITH 10CC NS. BLOOD SENT TO LAB.
--- NOTE | 2018-08-23 15:39 | NUR ---
1456 CUBICIN 700 MG HAS INFUSED. PICC LINE PORTS (RED AND PURPLE) WERE EACH FLUSHED WITH 10CC NS THEN FOLLOWED WITH 2CC (10UNITS/CC) HEPARIN. RED PORT EARLIER HAD BEEN DIFFICULT TO FLUSH. REPOSITIIONED PT'S ARM AND WAS ABLE TO GET A BLOOD RETURN AND FLUSHED WITH 10CC PRIOR TO ABX INFUSION. PICC DRESSING CHANGE BEGUN USING STERILE TECHNIQUE.
--- NOTE | 2018-08-23 15:42 | NUR ---
1525 PICC DRESSING CHANGE COMPLETED. NO REDNESS OR DRAINAGE AT INSERTION SITE. NO COMPLICATIONS DURING DRESSING CHANGE. SITE DATED AND INITIALED.
[2018-08-23 16:27] LABS: ERYTHROCYTE SEDIMENTATION RATE 15 mm/hr (0-20)
== END 2018-08-23 15:37 | disposition home or self-care (01) ==
LOC: D.OPS 13:48
PROVIDERS: ATTEND Student in an Organized Health Care Education/Training Program
DX: M86.9 Osteomyelitis, unspecified (principal)

== ENCOUNTER 2018-08-24 13:22 | Outpatient (CLI) | payer MEDICARE, BC ==
[~2018-08-24] VITALS: Ht 177.8 cm; Wt 85.5 kg
[2018-08-24 14:13] VITALS: BP 114/56; Ht 177.8 cm; Wt 85.5 kg
== END 2018-08-24 14:48 | disposition home or self-care (01) ==
LOC: D.OPS 13:22
PROVIDERS: ATTEND Student in an Organized Health Care Education/Training Program
DX: M86.9 Osteomyelitis, unspecified (principal)

== ENCOUNTER 2018-08-25 13:05 | Outpatient (CLI) | payer MEDICARE, BC ==
[~2018-08-25] VITALS: Ht 177.8 cm; Wt 84.1 kg
[2018-08-25 13:52] VITALS: BP 103/67; Ht 177.8 cm; Wt 84.1 kg
--- NOTE | 2018-08-25 14:45 | NUR ---
diabetic regular diet served to patient.
--- NOTE | 2018-08-25 15:30 | NUR ---
cubicin infusion completed. flushed with heparin per orders.
--- NOTE | 2018-08-25 15:35 | NUR ---
written and verbal dc inst. given to pt. verbalized understanding.
== END 2018-08-25 15:40 | disposition home or self-care (01) ==
LOC: D.OPS 13:05
PROVIDERS: ATTEND Student in an Organized Health Care Education/Training Program
DX: M86.9 Osteomyelitis, unspecified (principal)

== ENCOUNTER 2018-08-26 13:05 | Outpatient (CLI) | payer MEDICARE, BC ==
[~2018-08-26] VITALS: Ht 177.8 cm; Wt 85.5 kg
[2018-08-26 14:25] VITALS: BP 132/53; Ht 177.8 cm; Wt 85.5 kg
== END 2018-08-26 15:00 | disposition home or self-care (01) ==
LOC: D.OPS 13:05
PROVIDERS: ATTEND Student in an Organized Health Care Education/Training Program
DX: M86.9 Osteomyelitis, unspecified (principal)

== ENCOUNTER 2018-08-27 13:45 | Outpatient (CLI) | payer MEDICARE, BC ==
[~2018-08-27] VITALS: Ht 177.8 cm; Wt 85.5 kg
[2018-08-27 14:05] VITALS: BP 148/58; Ht 177.8 cm; Wt 85.5 kg
[2018-08-28] MEDS ORDERED: BASAGLAR K100 UNIT/1 SC (13:59)
[2018-08-28] MEDS ORDERED: GLUCOPHAGE850 MG PO (14:00)
== END 2018-08-27 15:05 | disposition home or self-care (01) ==
LOC: D.OPS 13:45
PROVIDERS: ATTEND Student in an Organized Health Care Education/Training Program
DX: M86.9 Osteomyelitis, unspecified (principal)

== ENCOUNTER 2018-08-28 13:39 | Outpatient (CLI) | payer MEDICARE, BC ==
[2018-08-27 14:05] VITALS: BMI 27.0
--- NOTE | 2018-08-28 13:52 | NUR ---
1350-PATIENT IS AMBULATORY TO ROOM. LEFT UPPER ARM DOUBLE LUMEN PICC LINE SEEN WITH DRESSING C/D/I. BOTH LUMENS FLUSH WELL WITH NS 10 CC TO EACH. AWAITING IV ABX SO IT CAN BE INFUSED.
[2018-08-28] MEDS ORDERED: BASAGLAR K100 UNIT/1 SC (13:59)
[2018-08-28] MEDS ORDERED: GLUCOPHAGE850 MG PO (14:00)
[2018-08-28 14:05] VITALS: BP 129/50
== END 2018-08-28 15:03 | disposition home or self-care (01) ==
LOC: D.OPS 13:39 → D.M3 13:40 → D.OPS 15:03
PROVIDERS: ATTEND Student in an Organized Health Care Education/Training Program
DX: M86.9 Osteomyelitis, unspecified (principal)

== ENCOUNTER 2018-08-29 13:42 | Outpatient (CLI) | payer MEDICARE, BC ==
[2018-08-27 14:05] VITALS: BMI 27.0
[~2018-08-29 13:42] MED LIST changes: +BASAGLAR K100 UNIT/1 SC; +GLUCOPHAGE850 MG PO
--- NOTE | 2018-08-29 14:01 | NUR ---
PATIENT ARRIVED TO THE FLOOR WITH HOSPITAL STAFF. STATES HIS IS READY TO BE DONE WITH COMING HERE TO GET ANTIBIOTICS. DENIES ANY PAIN AT THIS TIME. CALL LIGHT IS IN REACH AND BED IS IN LOW POSITION.
[2018-08-29 14:24] VITALS: BP 134/45
== END 2018-08-29 15:01 | disposition home or self-care (01) ==
LOC: D.OPS 13:42 → D.M3 13:42 → D.OPS 15:01
PROVIDERS: ATTEND Student in an Organized Health Care Education/Training Program
DX: M86.9 Osteomyelitis, unspecified (principal)

== ENCOUNTER 2018-08-30 13:52 | Outpatient (CLI) | payer MEDICARE, BC ==
[~2018-08-30] VITALS: Ht 177.8 cm; Wt 84.1 kg
[2018-08-30 14:03] VITALS: BP 142/50; Ht 177.8 cm; Wt 84.1 kg
[2018-08-30 14:20] LABS: BASOPHILS 0.6 % (0-2); EOSINOPHILS 5.4 % (0-7); HEMATOCRIT 33.9 % (42.0-54.0); HEMOGLOBIN 11.5 g/dL (13.5-17.5); LYMPHOCYTES 29.3 % (15-50); MCH 32.4 pg (26.0-34.0); MCHC 33.9 g/dL (31.0-37.0); MCV 95.5 fL (80.0-100.0); MEAN PLATELET VOLUME 9.1 fL (7.4-10.4); MONOCYTES 7.3 % (2-11); NEUTROPHILS 57.4 % (40-80); PLATELET COUNT 201 10x3/uL (130-400); RBC 3.55 10x6/uL (4.20-6.10); RDW 13.4 % (11.5-14.5); WBC 4.8 10x3/uL (4.8-10.8)
[2018-08-30 14:33] LABS: C-REACTIVE PROTEIN < 0.2 mg/dL (0.0-0.9); CREATINE KINASE 59 UL (21-232); CREATININE - SERUM 0.8 mg/dL (0.6-1.3); UREA NITROGEN 17 mg/dL (7-18)
--- NOTE | 2018-08-30 15:12 | NUR ---
PT LEFT UNIT AMBULATING AT 1512. LAB WORK DONE. ABX INFUSION ADMINISTERED PER ORDER. PICC LINE REMOVED PER ORDER.
[2018-08-30 15:26] LABS: ERYTHROCYTE SEDIMENTATION RATE 16 mm/hr (0-20)
== END 2018-08-30 15:12 | disposition home or self-care (01) ==
LOC: D.RAD 13:52 → D.OPS 13:52 → D.RAD 15:00 → D.OPS 15:12
PROVIDERS: ATTEND Student in an Organized Health Care Education/Training Program
DX: M86.9 Osteomyelitis, unspecified (principal)

== ENCOUNTER → 2020-07-31 13:31 | Outpatient (CLI) | payer MEDICARE, BC ==
[2018-08-30 14:03] VITALS: BMI 26.6
== END | disposition home or self-care (01) ==
LOC: D.US 13:31
PROVIDERS: ATTEND Thoracic Surgery (Cardiothoracic Vascular Surgery)
DX: I65.23 Occlusion and stenosis of bilateral carotid arteries (principal)